=== PATIENT | female | born 1950 | race African-American/Black ===

== ENCOUNTER 2018-04-06 23:23 | Inpatient (IN) | payer OTHER ==
[~2018-04-06] VITALS: Ht 157.5 cm; Wt 71.7 kg
[~2018-04-06 23:23] MED LIST: ACET-2863 PO; AMLO5TAB PO; ASPI-1093 PO; CARV3.12 PO; LEVEMIR SUBQ; METF500T PO; SIMV20TA1 PO; TEMA30CA23 PO
[2018-04-06 23:34] VITALS: BP 154/90
--- NOTE | 2018-04-06 23:36 | NUR ---
TO LOBBY A/W BED, HEATHER ARMENTA, COSTA NOTED
--- NOTE | 2018-04-07 00:18 | NUR ---
PT AMBULATED TO BED 10
[2018-04-07 00:28] LABS: APPEARANCE,URINE TURBID (CLEAR); BILIRUBIN,URINE 1+ (NEGATIVE); BLOOD, URINE 3+ (NEGATIVE); COLOR,URINE BROWN (YELLOW); LEUKOCYTE ESTERASE ,URINE TRACE (NEGATIVE); NITRITE, URINE NEGATIVE (NEGATIVE); UGLUCOSE NEGATIVE (NEGATIVE)
--- NOTE | 2018-04-07 00:51 | NUR ---
Dr. Ontiveros evaluating patient
[2018-04-07] MEDS ORDERED: MORPHINE SULFATE 4 MG/ML SYR IVP ONE ×2 (01:00→02:20)
[2018-04-07] MEDS ORDERED: METOCLOPRAMIDE 10 MG/2 ML INJ VIAL IVP ONE (01:00)
[2018-04-07] MEDS ORDERED: NACL 0.9% 1,000 ML IV ONE ×2 (01:00→03:05)
[2018-04-07 01:03] LABS: CALCIUM OXALATE CRYSTALS,UR 0-10 /HPF (None Seen); RBC,URINE TOO NUMEROUS TO COUN /HPF (0-5)
[2018-04-07 01:22] LABS: BASOPHILS % (AUTO) 0.3 % (0.0-2.0); EOSINOPHILS # (AUTO) 0.2 K/uL (0-0.4); EOSINOPHILS % (AUTO) 2.3 % (0.0-4.0); HEMATOCRIT 46.9 % (36-48); HEMOGLOBIN 15.5 g/dL (12.0-16.0); LYMPHOCYTES # (AUTO) 2.3 K/uL (2.5-16.5); LYMPHOCYTES % (AUTO) 26.5 % (20.5-51.1); MEAN CORPUSCULAR HEMOGLOBIN 29 pg (27-31); MEAN CORPUSCULAR HGB CONC 33 g/dL (33-37); MEAN CORPUSCULAR VOLUME 87.4 fL (80-94); MONOCYTES # (AUTO) 0.7 K/uL (0.8-1.0); MONOCYTES % (AUTO) 7.8 % (1.7-9.3); NEUTROPHILS # (AUTO) 5.5 K/uL (1.8-7.7); NEUTROPHILS % (AUTO) 63.1 % (42.2-75.2); PLATELET COUNT (AUTO) 198 K/uL (140-450); RED BLOOD CELL COUNT(AUTO) 5.37 MIL/uL (4.20-5.40); RED CELL DISTRIBUTION WIDTH 14.4 % (11.6-13.7); WHITE BLOOD COUNT (AUTO) 8.7 K/uL (4.8-10.8)
[2018-04-07 01:32] LABS: ANION GAP 10.2 (8-16); CARBON DIOXIDE 30.5 mmol/L (21-32); CREATININE 0.8 mg/dL (0.6-1.3); POTASSIUM 3.7 mmol/L (3.5-5.1)
[2018-04-07 01:43] LABS: PROTHROMBIN TIME 11.5 secs (10.8-13.4)
--- NOTE | 2018-04-07 02:08 | NUR ---
PT TAKEN FOR CT
--- NOTE | 2018-04-07 02:22 | NUR ---
PT RETURN FROM CT
[2018-04-07] MEDS ORDERED: TAMSULOSIN 0.4 MG CAP PO ONE (02:30)
[2018-04-07] MEDS ORDERED: cefTRIAXone 1,000 MG VIAL ONE (02:40)
--- NOTE | 2018-04-07 02:53 | NUR ---
FLOMAX NOT AVAILABLE IN [facility] ER. [facility] NOTIFIED, PER [facility] TO BE ADMINSITER IN FLOOR D/T UNABLE TO OVERWRITE. CHARGE NURSE, AND ER MD MADE AWARE.
--- NOTE | 2018-04-07 02:58 | NUR ---
PT RSTING IN BED, AWATING FOR ADMITING ORDERS. VSS.
[2018-04-07] MEDS ORDERED: fentaNYL 0.05 MG/ML VIAL IVP ONE (03:05)
[2018-04-07] MEDS ORDERED: AMLO10TA PO (03:28)
[2018-04-07] MEDS ORDERED: CARV12.5 PO (03:29)
[2018-04-07] MEDS ORDERED: TRAZ-286 PO (03:30)
[2018-04-07] MEDS ORDERED: HYDR-3293 PO (03:31)
[2018-04-07] MEDS ORDERED: VITD1000 PO (03:32)
[2018-04-07] MEDS ORDERED: ATOR10TA51 PO (03:33)
[2018-04-07] MEDS ORDERED: ONDA4ODT2 PO (03:34)
[2018-04-07] MEDS ORDERED: APIX5TAB PO (03:35)
[2018-04-07] MEDS: NACL 0.9% 1,000 ML IV SCH ×2 (04:04→17:11)
[2018-04-07] MEDS ORDERED: MORPHINE SULFATE 2 MG/ML SYR IVP PRN ×2 (04:05→15:00)
[2018-04-07] MEDS ORDERED: DEXTROSE 50% 50 ML SYR IVP PRN (04:05)
[2018-04-07] MEDS ORDERED: TEMAZEPAM 15 MG CAP PO PRN (04:05)
[2018-04-07] MEDS ORDERED: INSULIN LISPRO SLIDING SCALE 100 UNITS/ML VIAL SUBQ PRN (04:05)
[2018-04-07] MEDS ORDERED: MORPHINE SULFATE 4 MG/ML SYR IVP PRN (04:05)
[2018-04-07] MEDS ORDERED: HYDROcodone/APAP 5/325 MG 1 TAB TAB PO PRN (04:05)
[2018-04-07] MEDS ORDERED: ONDANSETRON 4 MG/2 ML VIAL IVP PRN (04:05)
--- NOTE | 2018-04-07 04:36 | NUR ---
Patient will be admitted to care of DR ADAME. Admited to MED SURG. Will go to room 104B. Belongings list completed. Report to MODESTO Gross at bedside.
--- NOTE | 2018-04-07 04:45 | NUR ---
ADMITTED PT FROM ER VIA JOSE ANTONIO. AAOX4. NO RESP DISTRESS NOTED. C/O ABD/RIGHT LOWER BACK PAIN 2/10, PER PT, PAIN IS TOLERABLE. SKIN INTACT. IV TO RIGHT WRIST #22G, PATENT AND INTACT. ORIENTED PT TO ROOM. DISCUSSED PLAN OF CARE, PT VERBALIZED UNDERSTANDING. WILL CONTINUE TO MONITOR. CALL LIGHT WITHIN REACH.
[2018-04-07 05:00] VITALS: BP 123/86
--- NOTE | 2018-04-07 05:08 | NUR ---
TAMSULOSIN 0.4MG WAS NOT GIVEN IN THE ER, MEDICINE NOT AVAILABLE. PER ORAL AND MAXILLOFACIAL SURGEON, GIVE THE TAMSULOSIN WHEN THE PT IS ADMITTED TO [facility].
--- NOTE | 2018-04-07 06:57 | NUR ---
PT C/O RIGHT LOWER BACK PAIN 7/10 SCALE. MORPHINE 4 MG IVP GIVEN ORDERED.
[2018-04-07] MEDS: BLOOD GLUCOSE MONITORING 1 DEV DEV FS SCH ×4 (06:59→20:36)
--- NOTE | 2018-04-07 07:05 | NUR ---
ASSUMED CONTINUITY OF CARE. NO SIGNS AND SYMPTOMS OF ACUTE DISTRESS NOTED. INITIAL ASSESSMENT DONE. KEEP COMFORTABLE ON BED. EXPLAINED DIAGNOSIS, PLAN OF CARE, PAIN MANAGEMENT TEACHING, STRAIN URINE FOR CALCULUS, USE OF CALL LIGHT/BED/TV/BATHROOM. VERBALIZED UNDERSTANDING. CALL LIGHT WITHIN REACH.
--- NOTE | 2018-04-07 07:05 | NUR ---
ENDORSED PT TO DAY SHIFT NURSE. PT IN STABLE CONDITION.
[2018-04-07 08:00] VITALS: BP 123/79
--- NOTE | 2018-04-07 08:00 | NUR ---
Patient's Plan of Care was discussed and reviewed with PAPER PLATE MACHINE TENDER: DARÍO VO
[2018-04-07] MEDS ORDERED: TAMSULOSIN 0.4 MG CAP PO SCH (08:30)
[2018-04-07] MEDS: traZODone 50 MG TAB PO SCH (08:51)
[2018-04-07] MEDS: LOSARTAN 50 MG TAB PO SCH (08:52)
[2018-04-07] MEDS: ATORVASTATIN 20 MG TAB PO SCH (08:52)
[2018-04-07] MEDS ORDERED: CARVEDILOL 6.25 MG TAB PO SCH (09:00)
[2018-04-07] MEDS ORDERED: APIXABAN 2.5 MG TAB PO SCH (09:00)
--- NOTE | 2018-04-07 10:30 | NUR ---
DR. ADAME CAME AND SPOKE TO PT. AT BEDSIDE.
--- NOTE | 2018-04-07 11:03 | NUR ---
PATIENT HAS BEEN SCREENED AND CATEGORIZED MODERATE NUTRITION RISK. PATIENT WILL BE SEEN WITHIN 3-5 DAYS OF ADMISSION. 04/09/18 04/11/[address]
[2018-04-07] MEDS ORDERED: LOVENOX 1MG/KG Q12H SUBQ SCH (11:15)
[2018-04-07 12:00] VITALS: BP 118/85
[2018-04-07] MEDS: HYDROcodone/APAP 5/325 MG 1 TAB TAB PO SCH ×2 (13:13→20:44)
--- NOTE | 2018-04-07 14:38 | NUR ---
WENT TO BATHROOM WITHOUT ASSISTANCE. HAD STEADY GAIT AND BALANCE. TOLERATED WELL. NO C/O PAIN.
--- NOTE | 2018-04-07 15:15 | NUR ---
Clinical review faxed to [facility] at [phone]
--- NOTE | 2018-04-07 15:25 | NUR ---
PAGED DR. KRISHNAN AT REGARDING PT. CONSULT. LEFT CALL BACK NUMBER.
--- NOTE | 2018-04-07 19:05 | NUR ---
BEDSIDE REPORT GIVEN TO LONNIE POSEY. IVF INFUSING WELL. IN STABLE CONDITION.
--- NOTE | 2018-04-07 19:30 | NUR ---
ASSUMED CARE OF PATIENT, AWAKE, ALERT AND ORIENTED. NO COMPLAINS. CALL LIGHT WITHIN REACH.
--- NOTE | 2018-04-07 20:00 | NUR ---
PLAN OF CARE DISCUSSED WITH PATIENT, VERBALIZED UNDERSTANDING WELL. CARE BOARD UPDATED. CALL LIGHT WITHIN REACH.
[2018-04-07] MEDS: CARVEDILOL 12.5 MG TAB PO SCH (20:44)
[2018-04-07] MEDS: ENOXAPARIN 80 MG/0.8 ML SYR SUBQ SCH (20:45)
--- NOTE | 2018-04-07 21:00 | NUR ---
DUE MEDS GIVEN, TOLERATED WELL. CALL LIGHT WITHIN REACH. NO COMPLAINS AT THIS TIME.
[2018-04-07 23:38] VITALS: BP 125/81
--- NOTE | 2018-04-07 23:43 | NUR ---
SLEEPING WELL. EASILY AROUSABLE. NO COMPLAINS. CALL LIGHT WITHIN REACH. VITAL SIGNS STABLE.
--- NOTE | 2018-04-08 03:00 | NUR ---
RECEIVED REPORT FROM LONNIE SALVADOR AT BEDSIDE FOR TRANSFER OF CARE. PT IS 67 F AO X4 ,SKIN INTACT WITH IV SITE ON L WRIST 22G RUNNING N/S AT 75MLS/HR. PT ADMITTED HERE FOR KIDNEY STONES. PT URINE IS BEING STRAINED. BED IN LOW POSITION AND CALL SEVERINO IN REACH.
--- NOTE | 2018-04-08 03:00 | NUR ---
ENDORSED CARE AT BEDSIDE WITH TERESA PAZ RN, PATIENT IN STABLE CONDITION.
[2018-04-08] MEDS: HYDROcodone/APAP 5/325 MG 1 TAB TAB PO SCH ×2 (04:05→13:17)
--- NOTE | 2018-04-08 04:25 | NUR ---
PT C/O 8/10 PAIN IN R FLANK AREA AND NAUSEA WELL. PT RECEIVED SCHEDULED NORCO 5/325MG 2 TABS AT THIS TIME WELL PRN 4MG/2MLS OF ZOFRAN FOR NUASEA. PT VOIDED 1000MLD OF RED TINGED URINE AND URINE WAS STRAINED, NO STONES OBTAINED. PT V/S FOLLOWS T 98.7 P 64 R 20 B/P 139/98 O2 99% W R/A.
[2018-04-08] MEDS: BLOOD GLUCOSE MONITORING 1 DEV DEV FS SCH ×2 (05:39→11:30)
[2018-04-08] MEDS: NACL 0.9% 1,000 ML IV SCH (06:05)
--- NOTE | 2018-04-08 07:15 | NUR ---
GAVE REPORT TO DEEPA SALVADOR DAYSHIFT NURSE AT BEDSIDE FOR TRANSFER OF CARE, PT IN STABLE CONDITION.
--- NOTE | 2018-04-08 07:20 | NUR ---
RECEIVED PT FROM AUTO BODY REPAIRER FIBERGLASS NURSE, TERESA, PT IS AWAKE AND LYING ON THE BED, SIDE RAILS ARE UP AND CALL LIGHT WITHIN REACH. PT HAS AN IV LINE ON THE LEFT FOREARM G. 22, INTACT WITH NS RUNNING AT 75ML/HR AND INFUSING WELL. PLAN OF CARE WAS DISCUSSED AND PT VERBALIZED UNDERSTANDING. PT IS ALER, ORIENTEDX4. NO SIGN OF DISTRESS NOTED AND WILL MONITOR.
[2018-04-08 07:33] LABS: BASOPHILS % (AUTO) 0.5 % (0.0-2.0); EOSINOPHILS # (AUTO) 0.2 K/uL (0-0.4); EOSINOPHILS % (AUTO) 2.8 % (0.0-4.0); HEMATOCRIT 42.1 % (36-48); HEMOGLOBIN 13.9 g/dL (12.0-16.0); LYMPHOCYTES # (AUTO) 2.1 K/uL (2.5-16.5); LYMPHOCYTES % (AUTO) 34.1 % (20.5-51.1); MEAN CORPUSCULAR HEMOGLOBIN 29 pg (27-31); MEAN CORPUSCULAR HGB CONC 33 g/dL (33-37); MEAN CORPUSCULAR VOLUME 88.1 fL (80-94); MONOCYTES # (AUTO) 0.6 K/uL (0.8-1.0); MONOCYTES % (AUTO) 9.3 % (1.7-9.3); NEUTROPHILS # (AUTO) 3.3 K/uL (1.8-7.7); NEUTROPHILS % (AUTO) 53.3 % (42.2-75.2); PLATELET COUNT (AUTO) 167 K/uL (140-450); RED BLOOD CELL COUNT(AUTO) 4.78 MIL/uL (4.20-5.40); RED CELL DISTRIBUTION WIDTH 14.1 % (11.6-13.7); WHITE BLOOD COUNT (AUTO) 6.2 K/uL (4.8-10.8)
[2018-04-08 07:42] LABS: ANION GAP 12.6 (8-16); CARBON DIOXIDE 27.3 mmol/L (21-32); CREATININE 0.7 mg/dL (0.6-1.3); POTASSIUM 3.9 mmol/L (3.5-5.1)
--- NOTE | 2018-04-08 07:45 | NUR ---
PT IS AWAKE AND VITAL SIGNS TAKEN, NO SIGN OF DISTRESS NOTED AND WILL MONITOR.
[2018-04-08 08:00] VITALS: BP 134/80
[2018-04-08] MEDS ORDERED: TAMSULOSIN 0.4 MG CAP PO SCH (08:30)
[2018-04-08] MEDS: ATORVASTATIN 20 MG TAB PO SCH (08:31)
[2018-04-08] MEDS: CARVEDILOL 12.5 MG TAB PO SCH (08:32)
[2018-04-08] MEDS: traZODone 50 MG TAB PO SCH (08:32)
[2018-04-08] MEDS: LOSARTAN 50 MG TAB PO SCH (08:33)
[2018-04-08] MEDS: ENOXAPARIN 80 MG/0.8 ML SYR SUBQ SCH (08:35)
[2018-04-08] MEDS ORDERED: ACET-2869 PO (08:58)
[2018-04-08] MEDS ORDERED: LEVO500T2 PO (08:58)
[2018-04-08] MEDS ORDERED: TAMS0.4C96 PO (08:58)
--- NOTE | 2018-04-08 09:00 | NUR ---
DR. ADAME SAW THE AND TALKED TO THE PT.
--- NOTE | 2018-04-08 15:00 | NUR ---
DISCHARGED PT VIA WHEELCHAIR, WITH THE SISTER. IV LINE AND ARM BAND REMOVED, DISCHARGE INSTRUCTIONS GIVEN WELL PRESCRIPTION INSTRUCTIONS GIVEN ALSO. PT VERBALIZED UNDERSTANDING OF INSTRUCTIONS. PT IS STABLE AT THIS TIME.
== END 2018-04-08 15:00 | disposition home or self-care (01) | DRG 694 ==
LOC: MED 23:23 → MTU 04-07 04:18
PROVIDERS: ADMIT Hospitalist; ATTEND Hospitalist
DX: N20.0 Calculus of kidney (principal); N39.0 Urinary tract infection, site not specified; I48.91 Unspecified atrial fibrillation; E11.9 Type 2 diabetes mellitus without complications; I10 Essential (primary) hypertension; E78.5 Hyperlipidemia, unspecified; F32.9 Major depressive disorder, single episode, unspecified; K57.30 Diverticulosis of large intestine without perforation or abscess without bleeding; Z90.710 Acquired absence of both cervix and uterus; Z96.659 Presence of unspecified artificial knee joint; E21.3 Hyperparathyroidism, unspecified
CPT/HCPCS: 36415; 80048; 80053; 81001; 82948; 83605; 85025; 85610; 85730; 87040; 87081; 87086; 96361; 96365; 96375; 96376; 99285; J0696; J1650; J1815; J2270; J2405; J2765; J3010; J7030; J7060

== ENCOUNTER 2019-01-30 11:22 | Inpatient (IN) | payer OTHER ==
[~2019-01-30] VITALS: Ht 160 cm; Wt 75.7 kg
[~2019-01-30 11:22] MED LIST changes: -ACET-2863 PO; -AMLO5TAB PO; +APIX5TAB PO; -ASPI-1093 PO; +ATOR10TA51 PO; +CARV12.5 PO; -CARV3.12 PO; +HYDR-3293 PO; +HYDR-5122 PO; -LEVEMIR SUBQ; +LEVO500T2 PO; -METF500T PO; +ONDA4ODT2 PO; +TAMS0.4C96 PO; -TEMA30CA23 PO; +TRAZ-343 PO; +VITD1000 PO
--- NOTE | 2019-01-30 11:23 | NUR ---
Patient ambulated to bed 7 with family. RN evaluating patient at bedside.
[2019-01-30 11:28] VITALS: BP 128/98
--- NOTE | 2019-01-30 11:30 | NUR ---
68 Y FEMALE BIB WITH C/O ABDOMINAL PAIN RADIATING TO LOWER BACK, +N/V, BURNING URINATION, SOBOE, DENIES CHEST PAIN. LUNGS CLEAR BILATERALLY. ABDOMEN SOFT AND ROUND, TENDER TO TOUCH, PAIN 10/10 ACHING. PT REPORTS HAVING ABOWEL MOVEMENT TODAY WITH STRAIN. HR 108. AA0X4. BED IS DOWN, LOCKED, BED RAIL X 1, ERMD NOTIFIED. HX OF HTN, KIDNEY STONE
--- NOTE | 2019-01-30 11:41 | NUR ---
Dr. Bateman evaluating patient at bedside.
[2019-01-30] MEDS ORDERED: NACL 0.9% 1,000 ML IV ONE (11:54)
[2019-01-30] MEDS ORDERED: MORPHINE SULFATE 4 MG/ML SYR IVP ONE ×2 (11:55→13:55)
[2019-01-30] MEDS ORDERED: ONDANSETRON 4 MG/2 ML VIAL IVP ONE ×2 (11:55→13:55)
--- NOTE | 2019-01-30 12:28 | NUR ---
LAB AT BEDSIDE
--- NOTE | 2019-01-30 12:31 | NUR ---
PT REFUSING MORPHINE, STATES SHE IS ALLERGIC TO IT
--- NOTE | 2019-01-30 12:35 | NUR ---
PT WANTS MORPHINE, STATES SHE GETS A HEADACHE WHEN SHE TAKES IT
--- NOTE | 2019-01-30 12:37 | NUR ---
PT BEING TAKEN TO CT
[2019-01-30 12:52] LABS: BASOPHILS # (AUTO) 0.1 K/uL (0.00-0.22); BASOPHILS % (AUTO) 0.6 % (0.0-2.0); HEMATOCRIT 46.1 % (36-48); HEMOGLOBIN 15.8 g/dL (12.0-16.0); LYMPHOCYTES # (AUTO) 1.5 K/uL (2.5-16.5); LYMPHOCYTES % (AUTO) 9.4 % (20.5-51.1); MEAN CORPUSCULAR HEMOGLOBIN 30 pg (27-31); MEAN CORPUSCULAR HGB CONC 34 g/dL (33-37); MEAN CORPUSCULAR VOLUME 87.4 fL (80-94); MONOCYTES # (AUTO) 1.6 K/uL (0.8-1.0); MONOCYTES % (AUTO) 9.6 % (1.7-9.3); NEUTROPHILS # (AUTO) 13.2 K/uL (1.8-7.7); NEUTROPHILS % (AUTO) 80.4 % (42.2-75.2); PLATELET COUNT (AUTO) 179 K/uL (140-450); RED BLOOD CELL COUNT(AUTO) 5.27 MIL/uL (4.20-5.40); RED CELL DISTRIBUTION WIDTH 14.3 % (11.6-13.7); WHITE BLOOD COUNT (AUTO) 16.4 K/uL (4.8-10.8)
--- NOTE | 2019-01-30 12:56 | NUR ---
PT RETURNED FROM CT
[2019-01-30 13:01] LABS: APPEARANCE,URINE SL CLOUDY (CLEAR); BILIRUBIN,URINE 1+ (NEGATIVE); BLOOD, URINE 3+ (NEGATIVE); COLOR,URINE DARK YELLOW (YELLOW); LEUKOCYTE ESTERASE ,URINE 2+ (NEGATIVE); NITRITE, URINE POSITIVE (NEGATIVE); PH,URINE 5.5 (5.0-9.0); UGLUCOSE NEGATIVE (NEGATIVE)
[2019-01-30 13:02] LABS: ANION GAP 16.1 (8-16); CARBON DIOXIDE 21.1 mmol/L (21-32); CREATININE 0.9 mg/dL (0.6-1.3); POTASSIUM 3.2 mmol/L (3.5-5.1)
[2019-01-30 13:13] LABS: RBC,URINE 80-100 /HPF (0-5); WBC,URINE TOO MANY TO COUNT /HPF (0-5)
[2019-01-30 13:15] LABS: ALBUMIN 3.5 g/dL (3.4-5.0); TOTAL BILIRUBIN 2.1 mg/dL (0.0-1.0)
[2019-01-30 13:19] LABS: MAGNESIUM 1.4 mg/dL (1.8-2.4); URIC ACID 6.8 mg/dL (2.6-7.2)
[2019-01-30] MEDS ORDERED: MAG SULF 2000 MG/WATER PREMIX 50 ML IV ONE (13:55)
[2019-01-30] MEDS ORDERED: cefTRIAXone 1,000 MG VIAL ONE (14:03)
--- NOTE | 2019-01-30 14:31 | NUR ---
PT CONTINUES TO SAT AT 90, STARTED ON 2 L NC, NOW AT 99%
--- NOTE | 2019-01-30 15:25 | NUR ---
PT SLEEPING IN BED
--- NOTE | 2019-01-30 16:00 | NUR ---
PT AMB TO BATHROOM WITH ASSISTANCE
--- NOTE | 2019-01-30 16:38 | NUR ---
VSS AT THIS TIME. AAX04. PT LAYING IN BED.
[2019-01-30] MEDS ORDERED: FAMOTIDINE 20 MG TAB PO ONE (16:40)
[2019-01-30] MEDS ORDERED: METOCLOPRAMIDE 10 MG TAB PO ONE (16:40)
[2019-01-30] MEDS ORDERED: MECLIZINE 25 MG TAB PO ONE (16:40)
[2019-01-30] MEDS ORDERED: hydrOXYzine HCL 25 MG TAB PO ONE (16:40)
[2019-01-30] MEDS ORDERED: PROMETHAZINE 25 MG/ML VIAL IM ONE (17:35)
--- NOTE | 2019-01-30 18:15 | NUR ---
RECEIVED REPORT FROM EMERGENCY ROOM NURSE DENISE. PT IN STABLE CONDITION.
--- NOTE | 2019-01-30 18:15 | NUR ---
Patient will be admitted to [facility]. Admited to TELE. Will go to room 107B. Belongings list completed. Report to NIMESH SALVADOR.
[2019-01-30] MEDS ORDERED: HYDROcodone/APAP 5/325 MG 1 TAB TAB PO PRN (18:30)
[2019-01-30] MEDS ORDERED: LORazepam 2 MG/ML VIAL IVP PRN (18:30)
[2019-01-30] MEDS ORDERED: ALBUTEROL 0.083% 2.5 MG/3 ML NEBU INH PRN (18:30)
[2019-01-30] MEDS ORDERED: ACETAMINOPHEN 325 MG TAB PO PRN (18:30)
[2019-01-30] MEDS ORDERED: DEXT 5% / NACL 0.45% 1,000 ML IV SCH (19:00)
--- NOTE | 2019-01-30 19:25 | NUR ---
GAVE REPORT TO AUTOMATIC DEVELOPER NURSE FOR CONTINUITY OF CARE. PT IN STABLE CONDITION.
--- NOTE | 2019-01-30 19:26 | NUR ---
RECEIVED REPORT FROM AM NURSE. PATIENT LYING DOWN IN BED, PAIN WITHIN TOLERABLE AT THIS TIME. AAOX4, CALM, COOPERATIVE, SKIN COLOR APPROPRIATE TO ETHNICITY, WARM TO TOUCH. SKIN INTACT. RESPIRATIONS EVEN, UNLABORED, ON ROOM AIR. IV SITE INTACT, PATENT, AND ON SALINE LOCK. ABDOMEN SOFT, NON-DISTENDED. SAFETY MEASURES IN PLACE, CALL LIGHT WITHIN REACH. WILL CONTINUE TO MONITOR.
[2019-01-30 20:00] VITALS: BP 120/80
[2019-01-30] MEDS ORDERED: MAG SULF 2000 MG/WATER PREMIX 50 ML IV SCH (20:00)
[2019-01-30] MEDS: ONDANSETRON 4 MG/2 ML VIAL IVP PRN (20:12)
[2019-01-30] MEDS: MORPHINE SULFATE 4 MG/ML SYR IVP PRN (20:13)
--- NOTE | 2019-01-30 20:29 | NUR ---
PATIENT HAD VOMIT X 1 EPISODE, ABOUT 10 ML. COMPLAINS OF ABD PAIN. ZOFRAN AND MORPHINE GIVEN AT THIS TIME. WILL CONTINUE TO MONITOR.
[2019-01-30] MEDS: ALBUTEROL 0.083% 2.5 MG/3 ML NEBU INH SCH (20:59)
[2019-01-30] MEDS: IPRATROPIUM 0.02% 0.5 MG/2.5 ML NEBU INH SCH (20:59)
[2019-01-30] MEDS: APIXABAN 2.5 MG TAB PO SCH (21:33)
[2019-01-30] MEDS: CARVEDILOL 3.125 MG TAB PO SCH (21:33)
--- NOTE | 2019-01-30 23:14 | NUR ---
PATIENT LYING DOWN IN BED SLEEPING, AROUSABLE BY VOICE. NO DISTRESS NOTED. WILL CONTINUE TO MONITOR.
[2019-01-31] VITALS: BP 145/92
[2019-01-31] MEDS ORDERED: KCL 20 MEQ/WATER INJ PREMIX 200 ML IV SCH
[2019-01-31] MEDS: ONDANSETRON 4 MG/2 ML VIAL IVP PRN ×3 (00:12→09:28)
[2019-01-31] MEDS: MORPHINE SULFATE 4 MG/ML SYR IVP PRN ×5 (00:19→20:40)
--- NOTE | 2019-01-31 00:26 | NUR ---
PATIENT AMBULATED TO BATHROOM AND BACK TO BED. VOMIT X 1 AT THIS TIME AND COMPLAINS OF ABD PAIN. ZOFRAN AND MORPHINE GIVEN AT THIS TIME. WILL CONTINUE TO MONITOR.
--- NOTE | 2019-01-31 01:00 | NUR ---
PT REFUSED TX
--- NOTE | 2019-01-31 01:34 | NUR ---
PATIENT LYING DOWN IN BED SLEEPING, AROUSABLE BY VOICE. CONDITION UNCHANGED. WILL CONTINUE TO MONITOR.
--- NOTE | 2019-01-31 02:51 | NUR ---
PATIENT LYING DOWN IN BED SLEEPING, AROUSABLE BY VOICE. CONDITION UNCHANGED. WILL CONTINUE TO MONITOR.
[2019-01-31 04:00] VITALS: BP 135/82
--- NOTE | 2019-01-31 04:46 | NUR ---
PATIENT FEELING NAUSEATED, VOMIT X 1 <5 ML. ZOFRAN GIVEN. PATIENT ALSO COMPLAINS OF ABD PAIN. MORPHINE GIVEN AT THIS TIME. WILL CONTINUE TO MONITOR.
--- NOTE | 2019-01-31 06:15 | NUR ---
PATIENT LYING DOWN IN BED SLEEPING, AROUSABLE BY VOICE. DENIES ANY PAIN. SCHEDULED MEDICATIONS DUE GIVEN. WILL CONTINUE TO MONITOR.
--- NOTE | 2019-01-31 07:24 | NUR ---
GAVE REPORT TO AM NURSE FOR CONTINUITY FOR CARE. PATIENT IN STABLE CONDITION.
--- NOTE | 2019-01-31 07:25 | NUR ---
GOT BEDSIDE REPORT FROM MODESTO MAS. PATIENT ON TELE MONITOR AND STANDARD PRECAUTIONS IN PLACE. PATIENT AAOX4 AND ON ROOM AIR, NO DISTRESS NOTED. SKIN INTACT. IV ON L FA 22 G, IV ASYMPTOMATIC PATENT AND INTACT. PATIENT AMBULATORY AND CONTINENT. BED IN LOW POSITION, CALL LIGHT WITHIN REACH, SIDE RAILS X2 UP
[2019-01-31 08:00] VITALS: BP 146/98
[2019-01-31 08:54] LABS: BASOPHILS % (AUTO) 0.1 % (0.0-2.0); HEMATOCRIT 43.5 % (36-48); HEMOGLOBIN 14.7 g/dL (12.0-16.0); LYMPHOCYTES # (AUTO) 1.4 K/uL (2.5-16.5); LYMPHOCYTES % (AUTO) 9.1 % (20.5-51.1); MEAN CORPUSCULAR HEMOGLOBIN 30 pg (27-31); MEAN CORPUSCULAR HGB CONC 34 g/dL (33-37); MEAN CORPUSCULAR VOLUME 88.3 fL (80-94); MONOCYTES # (AUTO) 1.6 K/uL (0.8-1.0); MONOCYTES % (AUTO) 10.5 % (1.7-9.3); NEUTROPHILS # (AUTO) 12.2 K/uL (1.8-7.7); NEUTROPHILS % (AUTO) 80.3 % (42.2-75.2); PLATELET COUNT (AUTO) 165 K/uL (140-450); RED BLOOD CELL COUNT(AUTO) 4.93 MIL/uL (4.20-5.40); RED CELL DISTRIBUTION WIDTH 14.4 % (11.6-13.7); WHITE BLOOD COUNT (AUTO) 15.2 K/uL (4.8-10.8)
[2019-01-31] MEDS: CARVEDILOL 3.125 MG TAB PO SCH ×2 (09:00→20:41)
[2019-01-31] MEDS ORDERED: NON-FORMULARY ITEM (Losartan/Hydrochlorothiazide (Losartan-Hctz 50-12.5 mg Tab) 1 TAB) PO SCH (09:00)
[2019-01-31] MEDS: traZODone 50 MG TAB PO SCH (09:00)
[2019-01-31] MEDS: LOSARTAN 50 MG TAB PO SCH (09:00)
[2019-01-31] MEDS ORDERED: NON-FORMULARY ITEM (Atorvastatin Calcium 1 TAB) PO SCH (09:00)
[2019-01-31] MEDS: APIXABAN 2.5 MG TAB PO SCH ×2 (09:00→20:42)
[2019-01-31] MEDS: TAMSULOSIN 0.4 MG CAP PO SCH (09:00)
[2019-01-31] MEDS: CHOLECALCIFEROL 1,000 IU TAB PO SCH (09:00)
[2019-01-31] MEDS: HYDROCHLOROTHIAZIDE 25 MG TAB PO SCH (09:00)
--- NOTE | 2019-01-31 09:39 | NUR ---
ADMINISTERED MORPHINE AND ZOFRAN PRN. HELD PO MEDS BECAUSE PATIENT STATED SHE FEELS NAUSEOUS AND CANT EAT HER BREAKFAST BECAUSE SHE CAN'T KEEP ANYTHING DOWN AND SHE MIGHT JUST THROW UP ALL HER PO MEDS.
--- NOTE | 2019-01-31 11:30 | NUR ---
PATIENT SLEEPING, ON ROOM AIR, NO DISTRESS NOTED
[2019-01-31 12:00] VITALS: BP 138/98
--- NOTE | 2019-01-31 14:22 | NUR ---
PATIENT WATCHING TV, ON ROOM AIR, NO DISTRESS NOTED
[2019-01-31] MEDS: PROMETHAZINE 25 MG/ML VIAL IVP PRN ×2 (15:41→20:40)
--- NOTE | 2019-01-31 15:47 | NUR ---
ADMINISTERED PHENERGAN PRN FOR NAUSEA. PATIENT TOLERATED WELL
[2019-01-31 16:00] VITALS: BP 138/96
--- NOTE | 2019-01-31 18:32 | NUR ---
DAUGHTER AT BEDSIDE. CHANGED SOILED LINENS AND PLACED PILLOWS ON BOTH SIDES Addendum: 01/31/19 at 1833 by Edel Sargent RN WRONG PATIENT. PLEASE DISREGARD ABOVE
--- NOTE | 2019-01-31 18:41 | NUR ---
PATIENT SITTING UP IN BED FEELING NAUSEOUS, NO PRN MED DUE AT THIS TIME. BLUE BAG WITH PATIENT
--- NOTE | 2019-01-31 19:20 | NUR ---
GAVE BEDSIDE REPORT TO MODESTO SANDERS. PATIENT ENDORSED IN STABLE CONDITION
--- NOTE | 2019-01-31 19:21 | NUR ---
RECEIVED BEDSIDE REPORT FROM DAY SHIFT RNERIC. PATIENT IN STABLE CONDITION. BED LOW, CALL LIGHT IN REACH.
[2019-01-31 20:00] VITALS: BP 142/108
[2019-01-31] MEDS: SIMVASTATIN 20 MG TAB PO SCH (20:41)
--- NOTE | 2019-01-31 20:41 | NUR ---
ADMINISTERED SCHEDULED MEDICATIONS, EXCEPT ZOCOR WHICH PATIENT REFUSED. ALSO ADMINISTERED PRN MORPHINE AND PHENERGAN DUE TO PAIN AND NAUSEA. PATIENT TOLERATED MEDICATIONS WELL. WILL CONTINUE TO MONITOR.
--- NOTE | 2019-01-31 22:00 | NUR ---
PATIENT NOW RESTING COMFORTABLY IN BED. PAIN HAS SUBSIDED. WILL CONTINUE TO MONITOR.
[2019-02-01] VITALS: BP 142/68
--- NOTE | 2019-02-01 00:15 | NUR ---
PATIENT SLEEPING IN BED. NO SIGNS OF DISTRESS ON RA. WILL CONTINUE TO MONITOR.
[2019-02-01] MEDS: MORPHINE SULFATE 4 MG/ML SYR IVP PRN ×5 (02:07→23:21)
[2019-02-01] MEDS: PROMETHAZINE 25 MG/ML VIAL IVP PRN ×2 (02:07→21:53)
--- NOTE | 2019-02-01 02:10 | NUR ---
ADMINISTERED PRN PAIN AND NAUSEA MEDICATION. WILL CONTINUE TO MONITOR.
[2019-02-01 04:00] VITALS: BP 139/100
--- NOTE | 2019-02-01 05:30 | NUR ---
PATIENT SLEEPING IN BED. NO SIGNS OF DISTRESS. SAFETY MEASURES IN PLACE.
[2019-02-01] MEDS: IPRATROPIUM 0.02% 0.5 MG/2.5 ML NEBU INH SCH ×3 (07:00→20:14)
[2019-02-01] MEDS: ALBUTEROL 0.083% 2.5 MG/3 ML NEBU INH SCH ×3 (07:00→20:14)
--- NOTE | 2019-02-01 07:15 | NUR ---
GAVE BEDSIDE REPORT TO DAY SHIFT RN. PATIENT IN STABLE CONDITION. SLEEPING COMFORTABLY. Addendum: 02/01/19 at 0817 by Kenyatta Barone RN WRONG PATIENT.
--- NOTE | 2019-02-01 07:30 | NUR ---
REPORT RECEIVED FROM NIGHT NURSE MARILYN . PT ASLEEP EASILY AROUSABLE TO A/O ABLE TO COMMUNICATE NEEDS. NO S/S ACUTE DISTRESS NOTED, PERSONAL ITEMS WITHIN REACH, CALL LIGHT AND SAFETY MEASURES IN PLACE, WILL CONTINUE TO MONITOR.
--- NOTE | 2019-02-01 07:35 | NUR ---
GAVE BEDSIDE REPORT TO DAY SHIFT RN. PATIENT AWAKE AND ALERT, ENDORSED TO DAY SHIFT NURSE FOR CONTINUITY OF CARE.
[2019-02-01 08:35] VITALS: BP 137/93
--- NOTE | 2019-02-01 08:38 | NUR ---
PATIENT HAS BEEN SCREENED AND CATEGORIZED HIGH NUTRITION RISK. PATIENT WILL BE SEEN WITHIN 1-2 DAYS OF ADMISSION. 02/01/[address]
[2019-02-01] MEDS: ONDANSETRON 4 MG/2 ML VIAL IVP PRN ×3 (08:41→18:27)
--- NOTE | 2019-02-01 08:41 | NUR ---
PT COMPLAINED OF PAIN TO IV SITE TO LFA W RESISTANCE TO FLUSH, PERIPHERAL IV REMOVED, CATH INTACT, PT TOLERATED WELL, NEW IV STARTED 24g TO RFA, LUIZA WELL, POSITIVE FOR FLUSH AND FLASH. NO S/S ACUTE DISTRESS NOTED, PERSONAL ITEMS WITHIN REACH, CALL LIGHT AND SAFETY MEASURES IN PLACE, WILL CONTINUE TO MONITOR.
[2019-02-01 08:48] LABS: ANION GAP 12.9 (8-16); CARBON DIOXIDE 27.6 mmol/L (21-32); CREATININE 0.8 mg/dL (0.6-1.3); POTASSIUM 3.5 mmol/L (3.5-5.1)
[2019-02-01 08:52] LABS: ALBUMIN 2.8 g/dL (3.4-5.0)
[2019-02-01] MEDS: FUROSEMIDE 40 MG TAB PO SCH (09:17)
[2019-02-01] MEDS: traZODone 50 MG TAB PO SCH (09:17)
[2019-02-01] MEDS: LOSARTAN 50 MG TAB PO SCH (09:17)
[2019-02-01] MEDS: CARVEDILOL 3.125 MG TAB PO SCH ×2 (09:18→20:20)
[2019-02-01] MEDS: HYDROCHLOROTHIAZIDE 25 MG TAB PO SCH (09:18)
[2019-02-01] MEDS: CHOLECALCIFEROL 1,000 IU TAB PO SCH (09:18)
[2019-02-01] MEDS: APIXABAN 2.5 MG TAB PO SCH ×2 (09:19→20:21)
[2019-02-01] MEDS: TAMSULOSIN 0.4 MG CAP PO SCH (09:20)
[2019-02-01] MEDS: NACL 0.9% 1,000 ML IV SCH ×2 (11:40→21:35)
[2019-02-01 12:00] VITALS: BP 133/92
--- NOTE | 2019-02-01 12:00 | NUR ---
PT SLEEPING AT THIS TIME, NO S/S ACUTE DISTRESS NOTED, PERSONAL ITEMS WITHIN REACH, CALL LIGHT AND SAFETY MEASURES IN PLACE, WILL CONTINUE TO MONITOR.
--- NOTE | 2019-02-01 14:00 | NUR ---
PT REMAINS A/O ABLE TO COMMUNICATE NEEDS. PER RECENTLY MEDICATED FOR PAIN, REPOSITIONED AND OFFERED DIVERSIONAL ACTIVITY. PERSONAL ITEMS WITHIN REACH, CALL LIGHT AND SAFETY MEASURES IN PLACE, WILL CONTINUE TO MONITOR.
--- NOTE | 2019-02-01 14:30 | NUR ---
SPOKE W PT BERNIE TO TO VERIFY IF PT IS RECEIVING SCHEDULED TREATMENTS, PER RT UNAWARE OF ORDER, WILL FOLLOW UP WITH TREATMENTS ORDERED.
--- NOTE | 2019-02-01 15:24 | NUR ---
02/01/19 RD INITIAL ASSESSMENT COMPLETED PLEASE REFER TO NUTRITION ASSESSMENT UNDER CARE ACTIVITY FOR ESTIMATED NUTRITIONAL NEEDS. 1. CONTINUE NA 2 GM DIET TOLERATED 2. RECOMMEND ENSURE BID 3. COPD NUTRITION EDUCATION WAS PROVIDED 4. RD TO FOLLOW-UP 3-5 DAYS, MODERATE RISK REBEL VILLARREAL, ARLYN
[2019-02-01 16:00] VITALS: BP 135/84
--- NOTE | 2019-02-01 16:00 | NUR ---
PT RESTING AT THIS TIME, NO S/S OF ACUTE DISTRESS NOTED. PERSONAL ITEMS WITHIN REACH, CALL LIGHT AND SAFETY MEASURES IN PLACE, WILL CONTINUE TO MONITOR.
--- NOTE | 2019-02-01 18:00 | NUR ---
PT REMAINS A/O ABLE TO COMMUNICATE NEEDS. PT RECENTLY MEDICATED FOR PAIN AND NAUSEA, REPOSITIONED AND OFFERED DIVERSIONAL ACTIVITY, ENCOURAGED TO EAT DINNER, NO S/S OF ACUTE DISTRESS NOTED. PERSONAL ITEMS WITHIN REACH, CALL LIGHT AND SAFETY MEASURES IN PLACE, WILL CONTINUE TO MONITOR.
--- NOTE | 2019-02-01 18:38 | NUR ---
0700 AND 130 RT UNAWARE OF SCHEDULED TX'S Addendum: 02/01/19 at 1839 by Sotero Lizarraga RT 130 = 1300
--- NOTE | 2019-02-01 19:37 | NUR ---
RECEIVED BEDSIDE REPORT FROM DAY SHIFT RN. PATIENT RESTING IN BED WITH FAMILY AT BEDSIDE. NO SIGNS OF DISTRESS ON RA. BED LOW, CALL LIGHT IN REACH.
--- NOTE | 2019-02-01 19:38 | NUR ---
REPORT ENDORSED TO ONCOMING SHIFT NURSE MARILYN. PT RESTING IN BED, FAMILY AT BEDSIDE, NO S/S OF ACUTE DISTRESS NOTED, PERSONAL ITEMS WITHIN REACH,CALL LIGHT AND SAFETY MEASURES IN PLACE.
[2019-02-01 20:00] VITALS: BP 130/106
[2019-02-01] MEDS: SIMVASTATIN 20 MG TAB PO SCH (20:21)
--- NOTE | 2019-02-01 20:23 | NUR ---
ADMINISTERED SCHEDULED MEDICATION. PATIENT REFUSED ZOCOR. PATIENT STATES THAT HER "DOCTOR TOOK HER OFF OF THAT ONE." PATIENT TOLERATED PO MEDIATIONS WELL. NO SIGNS OF DISTRESS ON RA. BED LOW. CALL LIGHT IN REACH. WILL CONTINUE TO MONITOR.
[2019-02-01] MEDS ORDERED: DILTIAZEM 25 MG/5 ML VIAL IVP PRN (21:20)
--- NOTE | 2019-02-01 21:20 | NUR ---
PATIENT HEART RATE IS ELEVATED. RECEIVED CALL FROM DR. SHANNON DOWNEY. ORDERS TO FOLLOW.
--- NOTE | 2019-02-01 21:39 | NUR ---
PHARMACY CALLED TO INFORM OF NEW ORDER OF CARDIZEM. PER MAYURI AT PHARMACY CARDIZEM INTERACTS WITH SIMVASTATIN WHICH IS CURRENTLY ON ORDER FOR THE PATIENT. PATIENT HAS BEEN REFUSING THE SIMVASTATIN. PER PHARMACISTS, IF DOCTOR WANTS TO CONTINUE WITH A STATIN THE ORDER CAN BE SWITCHED TO LIPITOR WITHOUT INTERACTION. WILL INFORM DOCTOR OF THIS AND AWAIT FURTHER ORDERS.
--- NOTE | 2019-02-01 22:00 | NUR ---
ADMINISTERED CARDIZEM 10 MG IV PER PRN ORDERS FOR HEART RATE OF 164. PATIENT UNABLE TO TAKE ORAL MEDICATIONS AT THIS TIME DUE TO NAUSEA. WILL CONTINUE TO MONITOR PATIENT. Addendum: 02/02/19 at 0337 by Kenyatta Barone RN ALSO ADMINISTERED PRN MEDICATION FOR NAUSEA. WILL CONTINUE TO MONITOR PATIENT.
--- NOTE | 2019-02-01 22:24 | NUR ---
SPOKE TO DR. TOVAR MADE HIM AWARE OF THE INTERACTION OF SIMVASTATIN AND CARDIZEM. PER DOCTOR LA, DISCONTINUE SIMVASTATIN.
--- NOTE | 2019-02-01 23:21 | NUR ---
PATIENT COMPLAINING OF 8/10 PAIN, VITAL SIGNS STABLE WITH THE EXCEPTION OF ONGOING TACHYCARDIA. ADMINISTERED PRN PAIN MEDICATION. WILL CONTINUE TO MONITOR.
[2019-02-02] VITALS (7 sets, daily range): BP systolic 94–138; BP diastolic 63–95
--- NOTE | 2019-02-02 00:07 | NUR ---
HEART RATE REMAINS ELEVATED AT 130, UNABLE TO ADMINISTER PO CARDIZEM DUE TO LOW BP. WILL MONITOR PATIENT CLOSELY.
[2019-02-02] MEDS: ALBUTEROL 0.083% 2.5 MG/3 ML NEBU INH SCH ×4 (01:00→19:00)
[2019-02-02] MEDS: IPRATROPIUM 0.02% 0.5 MG/2.5 ML NEBU INH SCH ×4 (01:00→19:00)
--- NOTE | 2019-02-02 01:00 | NUR ---
PATIENT IS RESTING, BP IS 94/70, HR IS 134 UNABLE TO ADMINISTER PRN CARDIZEM DUE TO LOW BP. WILL CONTINUE TO MONITOR.
[2019-02-02] MEDS: DILTIAZEM 30 MG TAB PO SCH ×5 (01:25→17:41)
--- NOTE | 2019-02-02 01:45 | NUR ---
PATIENT IS SLEEPING. RECHECKED VITALS AND SPO2 WAS 86%. APPLIED O2 AT 2L VIA NC AND SPO2 IMPROVED TO 95%. WILL CONTINUE TO MONITOR.
--- NOTE | 2019-02-02 02:30 | NUR ---
PATIENT SLEEPING AND BP REMAINS AT 90'S/60'S, SPO2 IN MID 90'S. WILL CONTINUE TO MONITOR.
--- NOTE | 2019-02-02 04:39 | NUR ---
PATIENT SLEEPING. NO SIGNS OF DISTRESS AT THIS TIME.
--- NOTE | 2019-02-02 06:33 | NUR ---
PATIENT IS AWAKE AND ALERT. NO SIGNS OF DISTRESS ON RA. BELONGINGS AND CALL LIGHT IN REACH. WILL ENDORSE TO DAY SHIFT RN FOR CONTINUITY OF CARE.
--- NOTE | 2019-02-02 07:20 | NUR ---
GAVE BEDSIDE REPORT TO DAY SHIFT RN. PATIENT RESTING IN BED. ENDORSING TO DAY SHIFT FOR CONTINUITY OF CARE.
--- NOTE | 2019-02-02 07:21 | NUR ---
RECEIVED REPORT FROM ELECTRIC BLANKET PACKER NURSE. PATIENT LYING DOWN IN BED SLEEPING, AROUSABLE BY VOICE. NO DISTRES NOTED. DENIES ANY PAIN AT THIS TIME. AAOX4, CALM, COOPERATIVE, SKIN COLOR APPROPRIATE TO ETHNICITY. WARM TO TOUCH. SKIN INTACT. RESPIRATIONS EVEN, UNLABORED, ON ROOM AIR. IV SITE INTACT, PATENT, AND INFUSING IVF PER MD ORDERS. REVIEWED PLAN OF CARE WITH PATIENT. PATIENT VERBALIZED UNDERSTANDING. SAFETY MEASURES IN PLACE, CALL LIGHT WITHIN REACH. WILL CONTINUE TO MONITOR.
[2019-02-02] MEDS: NACL 0.9% 1,000 ML IV SCH ×3 (07:35→17:35)
[2019-02-02 08:25] LABS: BASOPHILS % (AUTO) 0.5 % (0.0-2.0); EOSINOPHILS # (AUTO) 0.2 K/uL (0-0.4); EOSINOPHILS % (AUTO) 2.3 % (0.0-4.0); HEMATOCRIT 42.9 % (36-48); HEMOGLOBIN 14.4 g/dL (12.0-16.0); LYMPHOCYTES # (AUTO) 2.1 K/uL (2.5-16.5); LYMPHOCYTES % (AUTO) 26.4 % (20.5-51.1); MEAN CORPUSCULAR HEMOGLOBIN 29 pg (27-31); MEAN CORPUSCULAR HGB CONC 34 g/dL (33-37); MEAN CORPUSCULAR VOLUME 87.6 fL (80-94); MONOCYTES # (AUTO) 1.4 K/uL (0.8-1.0); MONOCYTES % (AUTO) 17.8 % (1.7-9.3); NEUTROPHILS # (AUTO) 4.1 K/uL (1.8-7.7); PLATELET COUNT (AUTO) 193 K/uL (140-450); RED CELL DISTRIBUTION WIDTH 14.3 % (11.6-13.7); WHITE BLOOD COUNT (AUTO) 7.8 K/uL (4.8-10.8)
[2019-02-02 08:28] LABS: ANION GAP 12.4 (8-16); CARBON DIOXIDE 28.7 mmol/L (21-32); CREATININE 0.7 mg/dL (0.6-1.3); POTASSIUM 3.1 mmol/L (3.5-5.1)
[2019-02-02] MEDS: traZODone 50 MG TAB PO SCH (09:00)
[2019-02-02] MEDS: ONDANSETRON 4 MG/2 ML VIAL IVP PRN (09:02)
[2019-02-02] MEDS: LOSARTAN 50 MG TAB PO SCH (09:05)
[2019-02-02] MEDS: CARVEDILOL 3.125 MG TAB PO SCH ×2 (09:05→20:58)
[2019-02-02] MEDS: APIXABAN 2.5 MG TAB PO SCH ×2 (09:07→21:00)
[2019-02-02] MEDS: MORPHINE SULFATE 4 MG/ML SYR IVP PRN ×2 (09:18→22:20)
--- NOTE | 2019-02-02 09:21 | NUR ---
CALLED DR RAND Lopez NOTIFIED THE HR UNCONTROLLED A-FIB NEW ORDER CARDIZEM 10MG IVPX1
[2019-02-02] MEDS: TAMSULOSIN 0.4 MG CAP PO SCH (09:26)
[2019-02-02] MEDS: HYDROCHLOROTHIAZIDE 25 MG TAB PO SCH (09:27)
[2019-02-02] MEDS: CHOLECALCIFEROL 1,000 IU TAB PO SCH (09:27)
[2019-02-02] MEDS: FUROSEMIDE 40 MG TAB PO SCH (09:27)
--- NOTE | 2019-02-02 09:30 | NUR ---
PATIENT SITTING IN BED WITH COMPLAINTS OF LOWER BACK PAIN. SCHEDULED MEDICATIONS DUE GIVEN. HEART RATE IS HIGH AROUND 140-160. GIVEN 10 MG IVP CARDIZEM PER DR. GORDILLO ORDERED. WILL CONTINUE TO MONITOR.
[2019-02-02] MEDS ORDERED: DILTIAZEM 25 MG/5 ML VIAL IVP SCH (09:45)
[2019-02-02] MEDS ORDERED: POTASSIUM CHLORIDE 10 MEQ TABER PO SCH (12:00)
--- NOTE | 2019-02-02 12:49 | NUR ---
PATIENT AMBULATED TO BATHROOM AND BACK TO BED. NO DISTRESS NOTED. DENIES ANY PAIN. SCHEDULED MEDICATIONS DUE GIVEN. WILL CONTINUE TO MONITOR.
--- NOTE | 2019-02-02 14:12 | NUR ---
PATIENT SITTING DOWN IN BED COMFORTABLY. NO DISTRESS NOTED. DENIES ANY PAIN. DENIES ANY HEADACHE, NAUSEA, DIZINESS AT THIS TIME. SCHEDULED MEDICATIONS DUE GIVEN. WILL CONTINUE TO MONITOR.
[2019-02-02] MEDS ORDERED: CLINICAL MONITORING MC PRN (16:15)
[2019-02-02] MEDS ORDERED: LEVOFLOXACIN 500 MG/D5W PREMIX 100 ML IV SCH (17:00)
--- NOTE | 2019-02-02 17:44 | NUR ---
PATIENT SITTING IN BED EATING DINNER. NO DISTRESS NOTED. DENIES ANY PAIN. SCHEDULED MEDICATIONS DUE GIVEN. DENIES ANY NAUSEA. WILL CONTINUE TO MONITOR.
--- NOTE | 2019-02-02 19:30 | NUR ---
GAVE REPORT TO WHITE METAL CASTER NURSE FOR CONTINUITY OF CARE. PATIENT IN STABLE CONDITION.
--- NOTE | 2019-02-02 19:35 | NUR ---
RECEIVED FROM AM RN IN BED SITTING UP AND WATCHING TV. CARE PLANS FOR THE NIGHT DISCUSSED WITH HER. CALL LIGHT WITH IN REACH. NO SOB. A/O X 4. TELEMETRY MONITORING. HR AT THIS TIME 114 CONTROLLED AFIB.
--- NOTE | 2019-02-02 21:07 | NUR ---
PT. ADMINISTERED ALL P.O. MEDICATIONS AND TOLERATED IT WELL. PT. ACCIDENTALLY DISCONTINUED HER IVF WITH TIP INTACT SHE WENT RESTROOM. PT. IS TALKING ON THE PHONE WITH A FRIEND AND STATED WHEN SHE IS DONE WITH HER TALK SHE WILL ALLOW ME TO PUT NEW IVF LINE. A/O X 4. ROM X4.
[2019-02-02] MEDS: PROMETHAZINE 25 MG/ML VIAL IVP PRN (22:20)
--- NOTE | 2019-02-02 22:29 | NUR ---
IVF SITE TO RIGHT HAND #24. TOLERATED WELL. MORPHINE IVP ADMINISTERED REQUESTED WITH PHENERGAN IVP RT NAUSEA COMPLAINT. VERBALIZES WELL.
--- NOTE | 2019-02-03 00:48 | NUR ---
WOKE UP EASILY WHEN VITAL SIGNS TAKEN. TELEMETRY MONITORING. WENT BACK TO SLEEP.
[2019-02-03 00:51] VITALS: BP 128/98
[2019-02-03] MEDS: ALBUTEROL 0.083% 2.5 MG/3 ML NEBU INH SCH ×3 (01:00→13:00)
[2019-02-03] MEDS: IPRATROPIUM 0.02% 0.5 MG/2.5 ML NEBU INH SCH ×3 (01:00→13:00)
[2019-02-03] MEDS: DILTIAZEM 30 MG TAB PO SCH ×3 (01:07→12:36)
--- NOTE | 2019-02-03 02:00 | NUR ---
PT. SLEEPING AT THIS TIME. NO RESTLESSNESS. CALL LIGHT WITH IN REACH.
[2019-02-03] MEDS: NACL 0.9% 1,000 ML IV SCH (03:35)
[2019-02-03 03:54] VITALS: BP 103/77
[2019-02-03] MEDS: MORPHINE SULFATE 4 MG/ML SYR IVP PRN ×3 (04:07→14:53)
--- NOTE | 2019-02-03 04:16 | NUR ---
PT. WOKE UP AND REQUESTED FOR PAIN RELIEVER. CRYING STATING THAT HER KIDNEY STONES ARE ACTING UP AGAIN. MEDICATED REQUESTED.
--- NOTE | 2019-02-03 05:33 | NUR ---
SLEEPING AT THIS TIME.
[2019-02-03 05:59] VITALS: BP 107/78
--- NOTE | 2019-02-03 07:30 | NUR ---
RECEIVED REPORT FROM PM NURSETERESA. PT IN BED RECEIVING BREATHING TX. RT AT BEDSIDE.
[2019-02-03 08:00] VITALS: BP 125/83
[2019-02-03] MEDS: traZODone 50 MG TAB PO SCH (09:00)
--- NOTE | 2019-02-03 09:00 | NUR ---
PT REFUSED TRAZODONE. STATES THAT SHE TAKES IT AT BEDTIME. WILL REQUEST CHANGE OF ORDER FROM
[2019-02-03] MEDS: HYDROCHLOROTHIAZIDE 25 MG TAB PO SCH (09:27)
[2019-02-03] MEDS: CHOLECALCIFEROL 1,000 IU TAB PO SCH (09:28)
[2019-02-03] MEDS: CARVEDILOL 3.125 MG TAB PO SCH (09:28)
[2019-02-03] MEDS: TAMSULOSIN 0.4 MG CAP PO SCH (09:32)
[2019-02-03] MEDS: FUROSEMIDE 40 MG TAB PO SCH (09:33)
[2019-02-03] MEDS: APIXABAN 2.5 MG TAB PO SCH (09:34)
[2019-02-03] MEDS: LOSARTAN 50 MG TAB PO SCH (09:35)
--- NOTE | 2019-02-03 10:34 | NUR ---
DR. BRIAN WILKINS CAME IN TO ASSESS PT. RECEIVED NEW ORDERS FOR CBC AND BMP STAT. ORDERS NOTED. Addendum: 02/03/19 at 1043 by Amirah Pinto RN ADDENDUM: DR. WILKINS NOTIFIED OF PT REQUEST TO CHANGE TRAZODONE TO HS. PER DR. ESPINO TO CHANGE. ORDER NOTED.
[2019-02-03 10:58] VITALS: BP 125/83
[2019-02-03] MEDS ORDERED: LEVO750T2 PO (11:04)
[2019-02-03 11:43] LABS: BASOPHILS % (AUTO) 0.5 % (0.0-2.0); EOSINOPHILS # (AUTO) 0.2 K/uL (0-0.4); EOSINOPHILS % (AUTO) 2.2 % (0.0-4.0); HEMATOCRIT 43.6 % (36-48); HEMOGLOBIN 14.7 g/dL (12.0-16.0); LYMPHOCYTES # (AUTO) 1.9 K/uL (2.5-16.5); MEAN CORPUSCULAR HEMOGLOBIN 30 pg (27-31); MEAN CORPUSCULAR HGB CONC 34 g/dL (33-37); MEAN CORPUSCULAR VOLUME 88.4 fL (80-94); MONOCYTES # (AUTO) 1.1 K/uL (0.8-1.0); MONOCYTES % (AUTO) 14.2 % (1.7-9.3); NEUTROPHILS # (AUTO) 4.4 K/uL (1.8-7.7); NEUTROPHILS % (AUTO) 58.1 % (42.2-75.2); PLATELET COUNT (AUTO) 206 K/uL (140-450); RED BLOOD CELL COUNT(AUTO) 4.93 MIL/uL (4.20-5.40); RED CELL DISTRIBUTION WIDTH 14.3 % (11.6-13.7); WHITE BLOOD COUNT (AUTO) 7.6 K/uL (4.8-10.8)
[2019-02-03 12:01] LABS: ANION GAP 9.5 (8-16); CARBON DIOXIDE 30.2 mmol/L (21-32); CREATININE 0.8 mg/dL (0.6-1.3); POTASSIUM 3.7 mmol/L (3.5-5.1)
--- NOTE | 2019-02-03 14:05 | NUR ---
called office of Dr Hollingsworth, [place] [phone] to make appointment spoke to Denita, and she said that they do not allow us to make appointment in behalf of the patient. Instructed patient to make appointment with Dr Hollingsworth, phone number provided to patient. Patient verbalized understanding.
--- NOTE | 2019-02-03 15:00 | NUR ---
Written & verbal discharge instructions, & written prescription provided to pt. Pt verbalized understanding & agree with discharge plans to f/u with PCP.
--- NOTE | 2019-02-03 16:05 | NUR ---
Pt discharged to home at this time. Left unit via wheelchair, accompanied by daughter. Name band removed. All belongings with pt upon departure. Left via private car.
[2019-02-03] MEDS ORDERED: traZODone 50 MG TAB PO SCH (21:00)
[2019-02-04] MEDS ORDERED: LEVOFLOXACIN 250 MG TAB PO SCH (09:00)
== END 2019-02-03 16:05 | disposition home or self-care (01) | DRG 871 ==
LOC: MED 11:22 → MTU 18:04 → MMU 01-31 18:17 → MTU 01-31 18:38
PROVIDERS: ADMIT Internal Medicine Pulmonary Disease; ATTEND Internal Medicine Pulmonary Disease
DX: A41.9 Sepsis, unspecified organism (principal); I50.21 Acute systolic (congestive) heart failure; N12 Tubulo-interstitial nephritis, not specified as acute or chronic; J44.1 Chronic obstructive pulmonary disease with (acute) exacerbation; E87.1 Hypo-osmolality and hyponatremia; N39.0 Urinary tract infection, site not specified; N20.0 Calculus of kidney; I48.2 Chronic atrial fibrillation; I11.0 Hypertensive heart disease with heart failure; E83.42 Hypomagnesemia; E87.6 Hypokalemia; Z16.19 Resistance to other specified beta lactam antibiotics
CPT/HCPCS: 36415; 71045; 71250; 80048; 80053; 81001; 82150; 83605; 83690; 83735; 83880; 84484; 84550; 85025; 87040; 87081; 87086; 87186; 93005; 94640; 96365; 96372; 96375; 96376; 99285; J0696; J1956; J2270; J2405; J2550; J3475; J3480; J3490; J7030; J7060; J7613; J7644; J8597; Q0092

== ENCOUNTER 2021-04-10 18:54 | Emergency (ER) | payer OTHER ==
[~2021-04-10] VITALS: Ht 154.9 cm; Wt 67.1 kg
[~2021-04-10 18:54] MED LIST changes: +LEVO750T2 PO
[2021-04-10 19:05] VITALS: BP 189/114
--- NOTE | 2021-04-10 19:14 | NUR ---
PT W/C ASSISTED TO BED 9.
[2021-04-10] MEDS ORDERED: PROCHLORPERAZINE 10 MG/2 ML VIAL ONE (20:01)
[2021-04-10] MEDS ORDERED: MORPHINE SULFATE 4 MG/ML SYR ONE (20:02)
[2021-04-10] MEDS ORDERED: PROCHLORPERAZINE 10 MG/2 ML VIAL IVP ONE (20:05)
[2021-04-10] MEDS ORDERED: NACL 0.9% 1,000 ML IV ONE (20:05)
[2021-04-10] MEDS ORDERED: MORPHINE SULFATE 4 MG/ML SYR IVP ONE ×2 (20:05→22:55)
[2021-04-10 20:48] LABS: APPEARANCE,URINE CLEAR (CLEAR); BILIRUBIN,URINE NEGATIVE (NEGATIVE); BLOOD, URINE 1+ (NEGATIVE); LEUKOCYTE ESTERASE ,URINE NEGATIVE (NEGATIVE); NITRITE, URINE NEGATIVE (NEGATIVE); PH,URINE 6.5 (5.0-9.0); UGLUCOSE NEGATIVE (NEGATIVE)
[2021-04-10 20:49] LABS: COLOR,URINE AMBER (YELLOW)
[2021-04-10 20:49] LABS: BASOPHILS % (AUTO) 0.2 % (0.0-2.0); HEMOGLOBIN 16.3 g/dL (12.0-16.0); LYMPHOCYTES # (AUTO) 1.2 K/uL (2.5-16.5); LYMPHOCYTES % (AUTO) 9.2 % (20.5-51.1); MEAN CORPUSCULAR HEMOGLOBIN 30 pg (27-31); MEAN CORPUSCULAR HGB CONC 33 g/dL (33-37); MEAN CORPUSCULAR VOLUME 89.8 fL (80-94); MONOCYTES # (AUTO) 0.4 K/uL (0.8-1.0); MONOCYTES % (AUTO) 2.6 % (1.7-9.3); PLATELET COUNT (AUTO) 168 K/uL (140-450); RED BLOOD CELL COUNT(AUTO) 5.46 MIL/uL (4.20-5.40); RED CELL DISTRIBUTION WIDTH 14.7 % (11.6-13.7); WHITE BLOOD COUNT (AUTO) 13.6 K/uL (4.8-10.8)
[2021-04-10 21:11] LABS: CALCIUM OXALATE CRYSTALS,UR 0-10 /HPF (None Seen); RBC,URINE 0-5 /HPF (0-5); WBC,URINE 0-5 /HPF (0-5)
--- NOTE | 2021-04-10 21:16 | NUR ---
PT TAKEN TO CT VIA JOSE ANTONIO
[2021-04-10 21:20] LABS: ALBUMIN 4.3 g/dL (3.4-5.0); ANION GAP 12.5 (8-16); CARBON DIOXIDE 29.8 mmol/L (21-32); CREATININE 0.9 mg/dL (0.6-1.3); POTASSIUM 3.3 mmol/L (3.5-5.1); TOTAL BILIRUBIN 1.3 mg/dL (0.0-1.0)
--- NOTE | 2021-04-10 21:27 | NUR ---
PT RETURNED FROM CT VIA [facility]
[2021-04-10] MEDS ORDERED: ONDA-24 SL (23:47)
[2021-04-10] MEDS ORDERED: BEN10 PO (23:47)
--- NOTE | 2021-04-11 00:01 | NUR ---
Patient discharged with v/s stable. Written and verbal after care instructions given and explained. Patient alert, oriented and verbalized understanding of instructions. Wheel Chair Assisted with to car. All questions addressed prior to discharge. ID band removed. Patient advised to follow up with PMD. Rx of ZOFRAN AND BENTYL given. Patient educated on indication of medication including possible reaction and side effects. Opportunity to ask questions provided and answered.
[2021-04-11 00:02] VITALS: BP 140/100
== END 2021-04-10 23:56 | disposition home or self-care (01) ==
LOC: MED 18:54
DX: R10.30 Lower abdominal pain, unspecified (principal); R30.0 Dysuria; R11.2 Nausea with vomiting, unspecified; R61 Generalized hyperhidrosis; E11.9 Type 2 diabetes mellitus without complications; I10 Essential (primary) hypertension; Z98.890 Other specified postprocedural states; Z79.899 Other long term (current) drug therapy
CPT/HCPCS: 36415; 74176; 80053; 81001; 83690; 85025; 96361; 96374; 96375; 96376; 99285; J0780; J2270; J7030

== ENCOUNTER 2022-01-26 16:07 | Observation (INO) | payer OTHER ==
[~2022-01-26] VITALS: Ht 157.5 cm; Wt 68.5 kg
[~2022-01-26 16:07] MED LIST changes: +BEN10 PO; +ONDA-188 SL
[2022-01-26 16:12] VITALS: BP 157/116
--- NOTE | 2022-01-26 16:12 | NUR ---
TO ER BED 12
--- NOTE | 2022-01-26 16:24 | NUR ---
DR. BARNARD BEDSIDE EVALUATING PT
[2022-01-26] MEDS ORDERED: NACL 0.9% 1,000 ML IV ONE (16:35)
--- NOTE | 2022-01-26 16:40 | NUR ---
71yo F PT COMPLAINS OF NAUSEA AND LOWER ABDOMEN PAIN. PT STATED SHE HAS HAD EPISODES OF VOMITING FOR A DAY. PT IS CURRENTL DIAPHORETIC AND HAS LABORED BREATHING. PT STATES SHE HAS TAKEN 3 DOSES OF ONDASTRON 3 HOURS APART AND HAS NO RELIEF IN PAIN. PT STATES BURNING FEELING WHEN URINATING.
[2022-01-26] MEDS ORDERED: MORPHINE SULFATE 4 MG/ML SYR IM ONE (16:45)
--- NOTE | 2022-01-26 16:46 | NUR ---
MOVED TO ER BED 10
[2022-01-26 17:18] LABS: BASOPHILS # (AUTO) 0.2 K/uL (0.00-0.22); BASOPHILS % (AUTO) 1.6 % (0.0-2.0); EOSINOPHILS # (AUTO) 0.5 K/uL (0-0.4); EOSINOPHILS % (AUTO) 4.9 % (0.0-4.0); HEMATOCRIT 49.7 % (36-48); HEMOGLOBIN 16.6 g/dL (12.0-16.0); LYMPHOCYTES # (AUTO) 1.3 K/uL (2.5-16.5); LYMPHOCYTES % (AUTO) 12.2 % (20.5-51.1); MEAN CORPUSCULAR HEMOGLOBIN 30 pg (27-31); MEAN CORPUSCULAR HGB CONC 34 g/dL (33-37); MEAN CORPUSCULAR VOLUME 90.7 fL (80-94); MONOCYTES # (AUTO) 0.5 K/uL (0.8-1.0); MONOCYTES % (AUTO) 4.6 % (1.7-9.3); NEUTROPHILS # (AUTO) 8.1 K/uL (1.8-7.7); NEUTROPHILS % (AUTO) 76.7 % (42.2-75.2); PLATELET COUNT (AUTO) 201 K/uL (140-450); RED BLOOD CELL COUNT(AUTO) 5.48 MIL/uL (4.20-5.40); RED CELL DISTRIBUTION WIDTH 14.5 % (11.6-13.7); WHITE BLOOD COUNT (AUTO) 10.6 K/uL (4.8-10.8)
[2022-01-26 17:28] LABS: ALBUMIN 4.2 g/dL (3.4-5.0); AMYLASE 32 U/L (25-115); ANION GAP 14.9 (8-16); ASPARTATE AMINOTRANSFERASE 20 U/L (15-37); CHLORIDE 104 mmol/L (98-107); CREATININE 0.7 mg/dL (0.6-1.3); GLUCOSE 128 mg/dL (74-106); LIPASE 30 U/L (73-393); POTASSIUM 3.9 mmol/L (3.5-5.1); SODIUM SERUM 139 mmol/L (136-145); TOTAL BILIRUBIN 1.2 mg/dL (0.0-1.0); UREA NITROGEN, BLOOD 11 mg/dL (7-18)
--- NOTE | 2022-01-26 17:35 | NUR ---
PT TAKEN TO CT VIA JOSE ANTONIO
--- NOTE | 2022-01-26 17:46 | NUR ---
PT RETURNED TO BED [address] [facility] [facility] [place]
--- NOTE | 2022-01-26 17:57 | NUR ---
PT SPOUSE DAVID DEXTER CONTACT INFO HOME [phone] CELL [phone]
[2022-01-26] MEDS ORDERED: diphenhydrAMINE 50 MG/ML VIAL IVP ONE ×2 (18:15→18:45)
[2022-01-26] MEDS ORDERED: MORPHINE SULFATE 4 MG/ML SYR IVP SCH (18:15)
--- NOTE | 2022-01-26 18:18 | NUR ---
ABI ESQUIVEL COLLECTED AND WALKED TO LAB
[2022-01-26] MEDS ORDERED: ALOG1TAB3 PO (18:29)
[2022-01-26] MEDS ORDERED: CEPH-588 PO (18:29)
[2022-01-26] MEDS ORDERED: RIVA20TA PO (18:29)
[2022-01-26] MEDS ORDERED: TAP5 PO (18:29)
[2022-01-26] MEDS ORDERED: AMLO10TA89 PO (18:29)
--- NOTE | 2022-01-26 18:29 | NUR ---
MED REC COMPLETED FOR PATIENT
--- NOTE | 2022-01-26 18:36 | NUR ---
PT SPOUSE DAVID IS TAKING PATIENT [facility]
[2022-01-26] MEDS ORDERED: METOCLOPRAMIDE 10 MG/2 ML INJ VIAL IVP ONE ×3 (18:40→18:45)
[2022-01-26] MEDS ORDERED: METOCLOPRAMIDE 10 MG/2 ML INJ VIAL ONE (18:44)
[2022-01-26] MEDS ORDERED: MORPHINE SULFATE 4 MG/ML SYR IVP ONE (18:45)
--- NOTE | 2022-01-26 18:53 | NUR ---
PT ACTIVELY VOMITTING BEDSIDE. ER MD MADE AWARE
--- NOTE | 2022-01-26 19:15 | NUR ---
Pt report given to MO[facility]STO [place]A. Transfer of care at this time.
[2022-01-26 19:28] LABS: APPEARANCE,URINE CLEAR (CLEAR); COLOR,URINE YELLOW (YELLOW); PH,URINE 8.5 (5.0-9.0)
[2022-01-26 19:29] LABS: UGLUCOSE NEGATIVE (NEGATIVE)
[2022-01-26 19:30] LABS: BILIRUBIN,URINE NEGATIVE (NEGATIVE); BLOOD, URINE NEGATIVE (NEGATIVE); LEUKOCYTE ESTERASE ,URINE NEGATIVE (NEGATIVE); NITRITE, URINE NEGATIVE (NEGATIVE)
--- NOTE | 2022-01-26 19:55 | NUR ---
AUTOMATION QA TESTER AT BEDSIDE
[2022-01-26] MEDS ORDERED: HYDROcodone/APAP 5/325 MG 1 TAB TAB PO PRN (20:25)
[2022-01-26] MEDS ORDERED: ONDANSETRON 4 MG/2 ML VIAL IVP PRN (20:25)
[2022-01-26] MEDS ORDERED: ACETAMINOPHEN 325 MG TAB PO PRN (20:25)
--- NOTE | 2022-01-26 20:33 | NUR ---
PT STATES SHE HAS NO RELIEF FROM MEDICATION SO FAR AND IS STILL NAUSEOUS. MD MADE AWARE OF PT CONDITION.
--- NOTE | 2022-01-26 21:00 | NUR ---
Patient will be admitted to care of DR CRONIN. Admited to TELE. Will go to room 104A. Belongings list completed. Report to MODESTO PIZANO..
--- NOTE | 2022-01-26 21:00 | NUR ---
PT TRANSPORTED VIA GURNEY. PT IS AWAKE ON RA. PT IS ABLE TO AMBULATE. GAIT STEADY. PT HAS 18 GAUGE RIGHT AC WITH D5 1/2 NS RUNNING AT 80 ML/HR. PT HAS CLEAR LUNGS SOUNDS. ABD IS SOFT AND NON-TENDER. PT COMPLAINING OF VOMITING AND ABD PAIN. WILL MEDICATE PER MD ORDER. NO OTHER COMPLAINS. PT EDUCATED PROPERTY ADJUSTER LIGHT SYSTEM. CALL LIGHT WITHIN REACH. ALL SAFETY MEASURERS TAKEN. WILL CONTINUE TO MONITOR THE PT.
[2022-01-26 21:20] VITALS: BP 182/117
[2022-01-26] MEDS: MORPHINE SULFATE 4 MG/ML SYR IVP PRN (22:10)
[2022-01-26] MEDS: DEXT 5% / NACL 0.45% 1,000 ML IV SCH (22:10)
[2022-01-26] MEDS ORDERED: hydrALAZINE 25 MG TAB PO PRN (22:45)
[2022-01-26] MEDS ORDERED: amLODIPine 5 MG TAB PO SCH (22:45)
[2022-01-26] MEDS ORDERED: LABETALOL 100 MG/20 ML VIAL IVP PRN (22:45)
--- NOTE | 2022-01-26 22:45 | NUR ---
MESSAGED DR. CRONIN FOR PT BP 182/117 ALSO FOR PT COMPLAINING OF N/V. DR. CRONIN CALLED BACK AND ORDERED PRN BP MEDS. HE SAID TO DISCONTINUE ZOFRAN. HE DID NOT ORDER ANY OTHER NAUSEA MEDICATIONS AND DOES NOT WANT TO GIVE ZOFRAN TO PT DUE TO EKG READINGS. PT MADE AWARE AND WANTS SOMETHING FOR NAUSEA AND VOMITING. CALLED ROUTER OPERATOR TO TALK TO PT SINCE PT WANTED TO TALK TO SOMEONE ELSE ABOUT THE SITUATION.
[2022-01-27] VITALS: BP 161/114
[2022-01-27] MEDS ORDERED: amLODIPine 5 MG TAB PO SCH (02:15)
[2022-01-27] MEDS: MORPHINE SULFATE 4 MG/ML SYR IVP PRN ×5 (02:22→23:28)
--- NOTE | 2022-01-27 02:25 | NUR ---
PT IS COMPLAINING OF ABD PAIN. MEDICATED PER MD ORDER. NO ADVERSE EFFECTS NOTED. NO FURTHER COMPLAINS FROM PT. WILL CONTINUE TO MONITOR THE PT.
[2022-01-27 04:00] VITALS: BP 157/106
--- NOTE | 2022-01-27 04:45 | NUR ---
PT IS SLEEPING IN BED COMFORTABLY. PT IS NOT IN ANY DISTRESS. BREATHING EVEN AND UNLABORED. IVF RUNNING PER MD ORDER. CALL LIGHT WITHIN REACH. ALL SAFETY MEASURES TAKEN. WILL CONTINUE TO MONITOR THE PT.
[2022-01-27 06:55] LABS: BASOPHILS % (AUTO) 0.2 % (0.0-2.0); HEMOGLOBIN 15.6 g/dL (12.0-16.0); LYMPHOCYTES # (AUTO) 1.5 K/uL (2.5-16.5); MEAN CORPUSCULAR HEMOGLOBIN 30 pg (27-31); MEAN CORPUSCULAR HGB CONC 33 g/dL (33-37); MEAN CORPUSCULAR VOLUME 91.3 fL (80-94); MONOCYTES # (AUTO) 0.6 K/uL (0.8-1.0); MONOCYTES % (AUTO) 7.3 % (1.7-9.3); NEUTROPHILS # (AUTO) 6.7 K/uL (1.8-7.7); NEUTROPHILS % (AUTO) 75.5 % (42.2-75.2); PLATELET COUNT (AUTO) 179 K/uL (140-450); RED BLOOD CELL COUNT(AUTO) 5.15 MIL/uL (4.20-5.40); RED CELL DISTRIBUTION WIDTH 14.6 % (11.6-13.7); WHITE BLOOD COUNT (AUTO) 8.9 K/uL (4.8-10.8)
[2022-01-27 07:22] LABS: ALBUMIN 3.7 g/dL (3.4-5.0); ANION GAP 13.3 (8-16); ASPARTATE AMINOTRANSFERASE 18 U/L (15-37); CARBON DIOXIDE 24.1 mmol/L (21-32); CHLORIDE 102 mmol/L (98-107); CREATININE 0.6 mg/dL (0.6-1.3); GLUCOSE 154 mg/dL (74-106); LIPASE 20 U/L (73-393); MAGNESIUM 1.8 mg/dL (1.8-2.4); PHOSPHORUS 2.4 mg/dL (2.5-4.9); POTASSIUM 3.4 mmol/L (3.5-5.1); SODIUM SERUM 136 mmol/L (136-145); UREA NITROGEN, BLOOD 10 mg/dL (7-18)
--- NOTE | 2022-01-27 07:23 | NUR ---
ENDORSED PT TO DAY SHIFT RN FOR CONTINUITY OF CARE. PT IS STABLE.
--- NOTE | 2022-01-27 07:24 | NUR ---
RECEIVED BEDSIDE REPORT FROM ROLE PLAYER NURSE FOR CONTINUOUS OF CARE, PT RESTING, NO DISTRESS NOTED, ALERT ORIENTED, ABLE TO LET NEEDS KNOWN, IV TO RIGHT AC 18G PATENT INTACT, INFUSING D5 1/2 NS @80ML/HR, INFUSING WELL, PT ON ROOM AIR, NO SOB NOTED, INITIAL ASSESSMENT DONE, ALL SAFETY PRECAUTION MET, CALL LIGHT WITHIN REACH, WILL CONTINUE TO MONITOR.
[2022-01-27 08:00] VITALS: BP 172/101
[2022-01-27] MEDS ORDERED: POTASSIUM CHLORIDE 10 MEQ TABER PO SCH (08:40)
[2022-01-27] MEDS: DEXT 5% / NACL 0.45% 1,000 ML IV SCH ×2 (08:55→12:28)
[2022-01-27] MEDS: traZODone 50 MG TAB PO SCH ×2 (09:00→09:43)
[2022-01-27] MEDS ORDERED: RIVAROXABAN 10 MG TAB PO SCH (09:00)
--- NOTE | 2022-01-27 09:01 | NUR ---
PT REFUSED TO TAKE MORNING MEDICATIONS DUE TO FEELING NAUSEOUS, PT STATED HAS BEEN VOMITING AND UNABLE TO TAKE PO INTAKE. NO NAUSEA MEDICATION AT THIS MOMENT. NOTIFY DR AMAYA, AWAITING FOR CALL BACK.
--- NOTE | 2022-01-27 09:30 | NUR ---
PT C/O NAUSEA, AND IS CURRENTLY VOMITING, NOTIFIED DR AMAYA, PT STATED AT HOME WAS TAKING ZOFRAN AND ITS NOT WORKING, ALSO WAS ADVISED BY ER DOC TO NOT TAKE ZOFRAN. PER TO ORDER REGLAN 10MG Q6H, AND PHENEGRAN 25MG Q6H. WILL CONTINUE WITH ORDERS. Addendum: 01/27/22 at 1725 by Samanta Clark RN REGLAN DOSE WAS CHANGED BY PHARMACY TO 5MG DUE TO RENAL DOSING.
[2022-01-27] MEDS: METOCLOPRAMIDE 10 MG/2 ML INJ VIAL IVP PRN ×3 (09:41→23:25)
--- NOTE | 2022-01-27 09:41 | NUR ---
REGLAN GIVEN PER DR ORDER, WILL CONTINUE TO MONITOR.
[2022-01-27] MEDS: amLODIPine 5 MG TAB PO SCH (09:43)
[2022-01-27] MEDS: methIMAzole 5 MG TAB PO SCH (09:44)
[2022-01-27] MEDS: PROMETHAZINE 25 MG/ML VIAL IVP PRN ×2 (10:51→17:13)
--- NOTE | 2022-01-27 10:51 | NUR ---
PT C/O ABD PAIN, MEDICATION GIVEN PER DR ORDER, WILL CONTINUE TO MONITOR.
--- NOTE | 2022-01-27 10:51 | NUR ---
PT STATED STILL FEELING NAUSEOUS, PHENERGAN GIVEN PER DR ORDER.
[2022-01-27 12:00] VITALS: BP 152/89
--- NOTE | 2022-01-27 15:09 | NUR ---
PT C/O ABD PAIN, MEDICATION GIVEN PER DR ORDER, WILL CONTINUE TO MONITOR.
--- NOTE | 2022-01-27 15:59 | NUR ---
PT FEELING NAUSEA AGAIN, REGLAN GIVEN, PT TOLERATED WELL, WILL CONTINUE TO MONITOR.
[2022-01-27 16:00] VITALS: BP 155/113
--- NOTE | 2022-01-27 16:10 | NUR ---
DR AMAYA AT BEDSIDE TALKING TO PT
[2022-01-27] MEDS ORDERED: METOCLOPRAMIDE 10 MG/2 ML INJ VIAL IVP SCH ×2 (16:50→17:25)
--- NOTE | 2022-01-27 17:13 | NUR ---
PT NAUSEATED, AND VOMITING, PHENERGAN GIVEN PER DR KHAN
--- NOTE | 2022-01-27 19:30 | NUR ---
ENDORSED PT TO TYPEWRITER TESTER NURSE FOR CONTINUOUS OF CARE.
[2022-01-27 20:00] VITALS: BP 168/120
--- NOTE | 2022-01-27 20:00 | NUR ---
GET THE REPORT FROM MORNING NURSE, PATIENT IS LYING ON BED , PATIENT IS ALERT AND ORIENTED X4, NO ANY COMPLAIN OF PAIN OR SHORTNESS OF BREATH, BP IS 168/120. PULSE: 102, BLOOD PRESSURE MEDS AND ALL SCHEDULE MEDS ARE GIVEN PER DR ORDER, CALL LIGHT IS WITHIN JOEY REACH WILL CONTINUE TO MONITOR.
[2022-01-27] MEDS: carvediloL 12.5 MG TAB PO SCH (20:19)
[2022-01-27] MEDS ORDERED: traZODone 50 MG TAB PO SCH (21:00)
[2022-01-28] VITALS: BP 157/102
--- NOTE | 2022-01-28 | NUR ---
PATIENT IS LYING ON BED , NO ANY COMPLAIN OF PAIN , DUE MEDS ARE GIVEN DR ORDER, VITAL SIGN IS WITHIN THE REACH ,CALL LIGHT IS WITHIN THE REACH WILL CONTINUE TO MONITOR.
[2022-01-28] MEDS ORDERED: hydrALAZINE 25 MG TAB PO PRN (03:50)
[2022-01-28] MEDS ORDERED: LABETALOL 100 MG/20 ML VIAL IVP PRN (03:50)
[2022-01-28 04:00] VITALS: BP 161/113
[2022-01-28] MEDS: PROMETHAZINE 25 MG/ML VIAL IVP PRN ×2 (05:06→12:57)
[2022-01-28] MEDS: MORPHINE SULFATE 4 MG/ML SYR IVP PRN (05:08)
--- NOTE | 2022-01-28 05:12 | NUR ---
PATIENT IS LYING ON BED , DUE MEDS ARE GIVEN DR ORDER ,CALL LIGHT IS WITHIN THE REACH WILL CONTINUE TO MONITOR
--- NOTE | 2022-01-28 05:14 | NUR ---
PT C/O OF NAUSEA AND HAD AN EPISODE X1 OF SPITTING U P SALIVA. PT ALSO C/O OF ABDOMINAL PAIN 04/21 AND SHOWED SIGN OF FACIAL GRIMACING. PT WAS GIVEN IVP MORPHINE FOR 05/22 PAIN. PO/PRN HYDRALAZINE GIVEN FOR SBP OF OVER 160 (161/113). WILL REEVALUATE EFFECTIVENESS OF MEDICATION LATER.
[2022-01-28 06:52] LABS: BASOPHILS % (AUTO) 0.4 % (0.0-2.0); EOSINOPHILS # (AUTO) 0.1 K/uL (0-0.4); EOSINOPHILS % (AUTO) 0.6 % (0.0-4.0); HEMATOCRIT 46.6 % (36-48); HEMOGLOBIN 15.5 g/dL (12.0-16.0); LYMPHOCYTES # (AUTO) 1.8 K/uL (2.5-16.5); LYMPHOCYTES % (AUTO) 16.5 % (20.5-51.1); MEAN CORPUSCULAR HEMOGLOBIN 30 pg (27-31); MEAN CORPUSCULAR HGB CONC 33 g/dL (33-37); MEAN CORPUSCULAR VOLUME 91.1 fL (80-94); MONOCYTES # (AUTO) 1.1 K/uL (0.8-1.0); MONOCYTES % (AUTO) 9.6 % (1.7-9.3); NEUTROPHILS # (AUTO) 8.1 K/uL (1.8-7.7); NEUTROPHILS % (AUTO) 72.9 % (42.2-75.2); PLATELET COUNT (AUTO) 183 K/uL (140-450); RED BLOOD CELL COUNT(AUTO) 5.11 MIL/uL (4.20-5.40); RED CELL DISTRIBUTION WIDTH 14.4 % (11.6-13.7); WHITE BLOOD COUNT (AUTO) 11.1 K/uL (4.8-10.8)
[2022-01-28 07:08] LABS: ALBUMIN 3.7 g/dL (3.4-5.0); ANION GAP 12.1 (8-16); ASPARTATE AMINOTRANSFERASE 23 U/L (15-37); CARBON DIOXIDE 25.1 mmol/L (21-32); CHLORIDE 101 mmol/L (98-107); CREATININE 0.6 mg/dL (0.6-1.3); GLUCOSE 139 mg/dL (74-106); LIPASE 37 U/L (73-393); MAGNESIUM 1.9 mg/dL (1.8-2.4); PHOSPHORUS 1.7 mg/dL (2.5-4.9); POTASSIUM 3.2 mmol/L (3.5-5.1); SODIUM SERUM 135 mmol/L (136-145); TOTAL BILIRUBIN 1.6 mg/dL (0.0-1.0); UREA NITROGEN, BLOOD 7 mg/dL (7-18)
[2022-01-28] MEDS: DEXT 5% / NACL 0.45% 1,000 ML IV SCH ×2 (07:29→10:03)
[2022-01-28 08:00] VITALS: BP 117/99
--- NOTE | 2022-01-28 08:00 | NUR ---
received patient from pm nurse, resting comfrotably in bed, no s/sx of pain or discomfort observed, will assume all care at this time
--- NOTE | 2022-01-28 08:29 | NUR ---
OTHER NURSE PULLED MEDICATIONS FROM [employer], VERIFIED MEDS AGAINST EMAR, WILL ADMINISTER ORDERED
--- NOTE | 2022-01-28 08:55 | NUR ---
PATIENT HAS BEEN SCREENED AND CATEGORIZED HIGH NUTRITION RISK. PATIENT WILL BE SEEN WITHIN 1-2 DAYS OF ADMISSION. 01/28/[address]
[2022-01-28] MEDS ORDERED: LOSARTAN 50 MG TAB PO SCH (09:00)
[2022-01-28] MEDS ORDERED: ENOXAPARIN 40 MG/0.4 ML SYR SUBQ SCH (09:00)
[2022-01-28] MEDS: METOCLOPRAMIDE 10 MG/2 ML INJ VIAL IVP PRN (09:11)
[2022-01-28] MEDS: methIMAzole 5 MG TAB PO SCH (09:15)
[2022-01-28] MEDS: amLODIPine 5 MG TAB PO SCH (09:16)
[2022-01-28] MEDS: carvediloL 12.5 MG TAB PO SCH (09:16)
[2022-01-28 12:00] VITALS: BP 122/85
--- NOTE | 2022-01-28 12:42 | NUR ---
P.T. NOTES P.T. EVAL COMPLETED; REFER TO EVAL FOR DETAILS; ENDORSED TO NURSING; PATIENT MAY BENEFIT W/ AMBULATION AD RAMANA W/ NURSE SUPERVISION.
--- NOTE | 2022-01-28 12:50 | NUR ---
patient c/o 5/10 generalized pain, and nausea, will administer prn phenergan and norco per emar
--- NOTE | 2022-01-28 16:51 | NUR ---
patient dc home, dischage instructions provided regarding med mgt, disease mgt and when to seek medical attention, iv dc with cath intact, no further questions or concerns at this time, patient wheeled out by rn to private automobile
== END 2022-01-28 16:55 | disposition home or self-care (01) ==
LOC: MED 16:07 → MTU 20:39 → INTOOBSV 20:39 → MTU 21:01
PROVIDERS: ADMIT Internal Medicine; ATTEND Internal Medicine
DX: R10.9 Unspecified abdominal pain (principal); Z20.822 Contact with and (suspected) exposure to COVID-19; R11.2 Nausea with vomiting, unspecified; I10 Essential (primary) hypertension; E03.9 Hypothyroidism, unspecified; I48.20 Chronic atrial fibrillation, unspecified; Z79.899 Other long term (current) drug therapy; Z90.710 Acquired absence of both cervix and uterus; Z87.11 Personal history of peptic ulcer disease; Z79.01 Long term (current) use of anticoagulants
CPT/HCPCS: 36415; 74176; 80053; 81003; 82150; 82948; 83605; 83690; 83735; 84100; 84484; 85025; 85379; 85610; 85730; 86886; 86900; 86901; 87040; 87081; 87426; 93005; 93307; 96361; 96372; 96374; 96375; 96376; 97163; 99285; G0378; J1200; J1650; J2270; J2550; J2765; J7030

== ENCOUNTER 2023-04-18 18:42 | Inpatient (IN) | payer OTHER ==
[~2023-04-18] VITALS: Ht 157.5 cm; Wt 68.0 kg
[~2023-04-18 18:42] MED LIST changes: +ALOG1TAB3 PO; +AMLO10TA89 PO; -APIX5TAB PO; -BEN10 PO; +CEPH-588 PO; +CHOL100084 PO; -HYDR-5122 PO; -LEVO500T2 PO; -LEVO750T2 PO; -ONDA-188 SL; -ONDA4ODT2 PO; +RIVA20TA PO; -SIMV20TA1 PO; -TAMS0.4C96 PO; +TAP5 PO; -VITD1000 PO
[2023-04-18 19:03] VITALS: BP 185/105; PULSE 68; RESP 20; TEMP 97.6; O2SAT 98
--- NOTE | 2023-04-18 19:20 | NUR ---
pt went to the bed 2
--- NOTE | 2023-04-18 19:30 | NUR ---
pt at the bedside
--- NOTE | 2023-04-18 19:40 | NUR ---
pt complaint about the pain abd 06/22 radiating to the back.
--- NOTE | 2023-04-18 19:50 | NUR ---
DR. Voss examining the patient
--- NOTE | 2023-04-18 19:53 | NUR ---
Pt went to the restroom.
[2023-04-18] MEDS ORDERED: MORPHINE SULFATE 4 MG/ML SYR IVP ONE (20:00)
[2023-04-18] MEDS ORDERED: ONDANSETRON 4 MG/2 ML VIAL IVP ONE (20:00)
[2023-04-18] MEDS ORDERED: hydrALAZINE 20 MG/ML VIAL IVP ONE (20:00)
[2023-04-18 20:10] LABS: APPEARANCE,URINE SL CLOUDY (CLEAR); BILIRUBIN,URINE 1+ (NEGATIVE); BLOOD, URINE 2+ (NEGATIVE); COLOR,URINE ORANGE (YELLOW); LEUKOCYTE ESTERASE ,URINE NEGATIVE (NEGATIVE); NITRITE, URINE NEGATIVE (NEGATIVE); UGLUCOSE NEGATIVE (NEGATIVE)
[2023-04-18 20:29] LABS: HEMOGLOBIN 16.1 g/dL (12.0-16.0); MEAN CORPUSCULAR HEMOGLOBIN 31 pg (27-31); MEAN CORPUSCULAR HGB CONC 34 g/dL (33-37); MEAN CORPUSCULAR VOLUME 91.9 fL (80-94); PLATELET COUNT (AUTO) 157 K/uL (140-450); RED BLOOD CELL COUNT(AUTO) 5.22 MIL/uL (4.20-5.40); RED CELL DISTRIBUTION WIDTH 13.9 % (11.6-13.7); WHITE BLOOD COUNT (AUTO) 8.2 K/uL (4.8-10.8)
--- NOTE | 2023-04-18 20:45 | NUR ---
Pt went to CT
[2023-04-18 20:46] LABS: ALBUMIN 4.1 g/dL (3.4-5.0); AMYLASE 21 U/L (25-115); ANION GAP 16.1 (8-16); ASPARTATE AMINOTRANSFERASE 23 U/L (15-37); CARBON DIOXIDE 25.9 mmol/L (21-32); CHLORIDE 102 mmol/L (98-107); CREATININE 0.8 mg/dL (0.6-1.3); GLUCOSE 153 mg/dL (74-106); LIPASE 27 U/L (73-393); SODIUM SERUM 140 mmol/L (136-145); TOTAL BILIRUBIN 1.2 mg/dL (0.0-1.0); UREA NITROGEN, BLOOD 13 mg/dL (7-18)
[2023-04-18 21:03] LABS: BASOPHILS % (MANUAL) 0 % (0-2); EOSINOPHILS % (MANUAL) 0 % (0-4); LYMPHOCYTES % (MANUAL) 15 % (20-46); MONOCYTES % (MANUAL) 2 % (5-12)
--- NOTE | 2023-04-18 21:03 | NUR ---
pt is vomitting, Dr. restrepo made aware.
[2023-04-18] MEDS ORDERED: METOCLOPRAMIDE 10 MG/2 ML INJ VIAL IVP ONE (21:10)
[2023-04-18 21:12] LABS: OTHER CASTS, URINE EPITHELIAL CASTS 1+ /LPF (None Seen); RBC,URINE 0-5 /HPF (0-5)
[2023-04-18] MEDS ORDERED: MORPHINE SULFATE 5 MG/ML VIAL IVP ONE (21:30)
[2023-04-18] MEDS ORDERED: MORPHINE SULFATE 10 MG/ML VIAL ONE (21:42)
[2023-04-18] MEDS: POLYETHYLENE GLYCOL 17 GM/PKT PO SCH (22:00)
[2023-04-18] MEDS: NACL 0.9% 1,000 ML IV SCH (22:05)
[2023-04-18] MEDS ORDERED: ACETAMINOPHEN 325 MG TAB PO PRN (22:05)
[2023-04-18] MEDS ORDERED: KCL 20 MEQ IN 100 mL PREMIX 200 ML IV PRN (22:05)
[2023-04-18] MEDS ORDERED: MAG SULF 2000 MG/WATER PREMIX 50 ML IV PRN (22:05)
[2023-04-18] MEDS ORDERED: HYDROcodone/APAP 5/325 MG 1 TAB TAB PO PRN (22:05)
[2023-04-18] MEDS ORDERED: LORazepam 1 MG TAB PO PRN (22:05)
[2023-04-18] MEDS ORDERED: carvediloL 12.5 MG TAB PO SCH (22:10)
[2023-04-18] MEDS ORDERED: CLONIDINE HYDROCHLORIDE 0.1 MG TAB PO PRN (22:10)
[2023-04-18] MEDS ORDERED: hydrALAZINE 20 MG/ML VIAL IVP PRN (22:10)
[2023-04-18] MEDS ORDERED: DILT-135 (22:34)
[2023-04-18] MEDS ORDERED: METO-485 PO (22:34)
--- NOTE | 2023-04-18 22:57 | NUR ---
ultraound at the bedside
[2023-04-18] MEDS: SENNA 8.6 MG TAB PO SCH (23:22)
--- NOTE | 2023-04-19 01:45 | NUR ---
pt went to restroom
[2023-04-19] MEDS: MORPHINE SULFATE 4 MG/ML SYR IVP PRN ×5 (01:57→20:54)
[2023-04-19] MEDS: ONDANSETRON 4 MG/2 ML VIAL IVP PRN ×3 (01:57→17:09)
[2023-04-19 05:27] LABS: BASOPHILS % (AUTO) 0.3 % (0.0-2.0); HEMATOCRIT 46.2 % (36-48); HEMOGLOBIN 15.7 g/dL (12.0-16.0); LYMPHOCYTES # (AUTO) 1.6 K/uL (2.5-16.5); LYMPHOCYTES % (AUTO) 16.6 % (20.5-51.1); MEAN CORPUSCULAR HEMOGLOBIN 31 pg (27-31); MEAN CORPUSCULAR HGB CONC 34 g/dL (33-37); MEAN CORPUSCULAR VOLUME 91.8 fL (80-94); MONOCYTES # (AUTO) 0.9 K/uL (0.8-1.0); MONOCYTES % (AUTO) 9.9 % (1.7-9.3); NEUTROPHILS % (AUTO) 73.2 % (42.2-75.2); PLATELET COUNT (AUTO) 156 K/uL (140-450); RED BLOOD CELL COUNT(AUTO) 5.04 MIL/uL (4.20-5.40); WHITE BLOOD COUNT (AUTO) 9.6 K/uL (4.8-10.8)
[2023-04-19 06:35] LABS: ALBUMIN 3.5 g/dL (3.4-5.0); ASPARTATE AMINOTRANSFERASE 18 U/L (15-37); CARBON DIOXIDE 27.4 mmol/L (21-32); CHLORIDE 103 mmol/L (98-107); GLUCOSE 128 mg/dL (74-106); MAGNESIUM 1.7 mg/dL (1.8-2.4); POTASSIUM 3.4 mmol/L (3.5-5.1); SODIUM SERUM 139 mmol/L (136-145); UREA NITROGEN, BLOOD 14 mg/dL (7-18)
[2023-04-19 06:47] LABS: CREATININE 0.7 mg/dL (0.6-1.3)
--- NOTE | 2023-04-19 07:19 | NUR ---
REPORT RECEIVED FROM BRIDGETTE SALVADOR. ASSUMED CARE AT THIS TIME
--- NOTE | 2023-04-19 08:16 | NUR ---
The patient's care was reviewed and supervised by SHARRI MOMIN RN.
--- NOTE | 2023-04-19 08:16 | NUR ---
PATIENT PRESENTS TO ED WITH RTFLANK PAIN, HTN . PT STATES . DENIES N/V/D; SKIN IS PINK/WARM/DRY; AAOX4 WITH EVEN AND STEADY GAIT; LUNGS CLEAR BL; HR EVEN AND REGULAR; PT DENIES ANY FEVER, CP, SOB, OR COUGH AT THIS TIME; PATIENT STATES PAIN OF 7/10 AT THIS TIME; VSS; PATIENT POSITIONED FOR COMFORT; HOB ELEVATED; BEDRAILS UP X2; BED DOWN. ER MD MADE AWARE OF PT STATUS.PTTRANSFERED TO TELE VIA ACLS PROTOCOL
--- NOTE | 2023-04-19 08:17 | NUR ---
Patient will be admitted to care of MD AMOS. Admited to TELE. Will go to room 119A. Belongings list completed. Report to SHANTEL RN .
--- NOTE | 2023-04-19 08:30 | NUR ---
RECEIVED REPORT FROM ER NURSE, PT ARRIVED IN THE UNIT VIA GURNEY. WALKED TO HER BED. PT IS IN 2L NC. ORIENTED PT TO THE NEW ENVIRONMENT, BED MECHANICS, CALL LIGHT, TV, BATHROOM, BED WHEELS ON BREAK. PT IS STABLE, NO SIGN OF DISTRESS. CALL LIGHT WITHIN REACH.
[2023-04-19] MEDS ORDERED: NON-FORMULARY ITEM (Atorvastatin Calcium 1 TAB) PO SCH (09:00)
[2023-04-19] MEDS ORDERED: NON-FORMULARY ITEM (Amlodipine Besylate (Amlodipine) 10 MG) PO SCH (09:00)
[2023-04-19] MEDS ORDERED: ENOXAPARIN 40 MG/0.4 ML SYR SUBQ SCH (09:00)
[2023-04-19] MEDS: methIMAzole 5 MG TAB PO SCH (09:45)
[2023-04-19 10:00] VITALS: PULSE 116
[2023-04-19] MEDS: carvediloL 12.5 MG TAB PO SCH ×2 (10:57→20:30)
[2023-04-19] MEDS: DILTIAZEM 120 MG CAPER PO SCH (10:58)
[2023-04-19] MEDS: LOSARTAN 50 MG TAB PO SCH (10:58)
[2023-04-19] MEDS: RIVAROXABAN 10 MG TAB PO SCH (11:00)
[2023-04-19] MEDS: SENNA 8.6 MG TAB PO SCH ×2 (11:05→20:29)
[2023-04-19] MEDS: ATORVASTATIN 20 MG TAB PO SCH (11:05)
[2023-04-19] MEDS: LACTULOSE 20 GM/30 ML UDC PO SCH ×3 (11:06→17:10)
[2023-04-19] MEDS: POLYETHYLENE GLYCOL 17 GM/PKT PO SCH ×2 (11:06→20:28)
[2023-04-19] MEDS: DOCUSATE SODIUM 100 MG GELCAP PO SCH (11:08)
[2023-04-19] MEDS: amLODIPine 5 MG TAB PO SCH (11:09)
[2023-04-19 12:00] VITALS: BP 148/106; PULSE 116; PULSE 96; RESP 17; TEMP 98; O2SAT 97
--- NOTE | 2023-04-19 12:00 | NUR ---
PATIENT VERBALIZES OF FLANK PAIN BUT STATES SHE CAN MANAGE THE PAIN WITH ENOUGH REST. PATIENT STABLE
[2023-04-19] MEDS: NACL 0.9% 1,000 ML IV SCH ×2 (14:50→23:05)
[2023-04-19 16:00] VITALS: BP 130/74; PULSE 86; PULSE 93; RESP 18; TEMP 97.7; O2SAT 97
--- NOTE | 2023-04-19 19:25 | NUR ---
ENDORSED TO NIGHT NURSE FOR CONTINUITY OF CARE. PT IS ASLEEP, AWAKEN BY NAME. NO SIGN OF DISTRESS. CALL LIGHT WITHIN REACH.
--- NOTE | 2023-04-19 19:26 | NUR ---
RECEIVED REPORT FROM SHANTEL RN. PATIENT AWAKE RESTING IN BED. NO ACUTE DISTRESS NOTED. IVF NS INFUSING WELL TO RIGHT FOREARM. NO COMPLAINTS OF PAIN AT THIS TIME. CALL LIGHT WITHIN REACH. AMBULATORY. BED WHEELS LOCKED IN LOW POSITION.
[2023-04-19 19:53] VITALS: PULSE 93; RESP 15; O2SAT 100
--- NOTE | 2023-04-19 19:58 | NUR ---
PT HAS SATURATION OF 100% ON ROOM, CLEAR BREATH SOUNDS. CALL LIGHT WITHIN REACH
[2023-04-19 20:00] VITALS: BP 160/108; PULSE 84; PULSE 97; RESP 18; TEMP 97.7; O2SAT 94
[2023-04-19 20:18] VITALS: PULSE 86; RESP 15; O2SAT 100
--- NOTE | 2023-04-19 20:30 | NUR ---
SCHEDULED MEDICATIONS DUE ADMINISTERED.
[2023-04-19] MEDS: ZOLPIDEM 5 MG TAB PO PRN (20:39)
[2023-04-20] VITALS (8 sets, daily range): BP systolic 125–149; BP diastolic 79–109; PULSE 64–117; RESP 15–18; TEMP 97.4–98.5; O2SAT 96–100
[2023-04-20] MEDS: MORPHINE SULFATE 4 MG/ML SYR IVP PRN ×4 (01:25→22:02)
--- NOTE | 2023-04-20 01:25 | NUR ---
PATIENT COMPLAINED OF SEVERE FLANK PAIN, MEDICATED ORDERED.
[2023-04-20] MEDS: POTASSIUM CHLORIDE 10 MEQ TABER PO PRN (04:07)
[2023-04-20 05:13] LABS: BASOPHILS # (AUTO) 0.1 K/uL (0.00-0.22); BASOPHILS % (AUTO) 0.5 % (0.0-2.0); EOSINOPHILS # (AUTO) 0.1 K/uL (0-0.4); EOSINOPHILS % (AUTO) 0.7 % (0.0-4.0); HEMOGLOBIN 16.7 g/dL (12.0-16.0); LYMPHOCYTES # (AUTO) 2.2 K/uL (2.5-16.5); LYMPHOCYTES % (AUTO) 20.8 % (20.5-51.1); MEAN CORPUSCULAR HEMOGLOBIN 31 pg (27-31); MEAN CORPUSCULAR HGB CONC 34 g/dL (33-37); MEAN CORPUSCULAR VOLUME 91.6 fL (80-94); MONOCYTES % (AUTO) 9.5 % (1.7-9.3); NEUTROPHILS # (AUTO) 7.3 K/uL (1.8-7.7); NEUTROPHILS % (AUTO) 68.5 % (42.2-75.2); PLATELET COUNT (AUTO) 160 K/uL (140-450); RED BLOOD CELL COUNT(AUTO) 5.35 MIL/uL (4.20-5.40); RED CELL DISTRIBUTION WIDTH 14.3 % (11.6-13.7); WHITE BLOOD COUNT (AUTO) 10.6 K/uL (4.8-10.8)
[2023-04-20 05:56] LABS: ALBUMIN 3.6 g/dL (3.4-5.0); ANION GAP 10.1 (8-16); ASPARTATE AMINOTRANSFERASE 22 U/L (15-37); CARBON DIOXIDE 28.2 mmol/L (21-32); CHLORIDE 100 mmol/L (98-107); CREATININE 0.7 mg/dL (0.6-1.3); GLUCOSE 110 mg/dL (74-106); MAGNESIUM 1.8 mg/dL (1.8-2.4); POTASSIUM 3.3 mmol/L (3.5-5.1); SODIUM SERUM 135 mmol/L (136-145); TOTAL BILIRUBIN 1.7 mg/dL (0.0-1.0); UREA NITROGEN, BLOOD 12 mg/dL (7-18)
--- NOTE | 2023-04-20 07:40 | NUR ---
ENDORSED PATIENT TO AM NURSE FOR CONTINUITY OF CARE.
--- NOTE | 2023-04-20 07:45 | NUR ---
RECEIVED PATIENT FROM PM NURSE FOR CONTINUATION OF CARE. PATIENT SEEN AWAKE EATING BREAKFAST. PATIENT VERBALIZES NO PAIN OF THE MOMENT. PATIENT ALSO STATES NO NAUSEA AND VOMITING SINCE LAST NIGHT. ABLE TO TO TOLERATE CURRENT DIET.
--- NOTE | 2023-04-20 08:57 | NUR ---
PATIENT HAS BEEN SCREENED AND CATEGORIZED LOW NUTRITION RISK. PATIENT WILL BE SEEN WITHIN 7 DAYS OF ADMISSION. 04/18/23-04/25/[address]
[2023-04-20] MEDS: RIVAROXABAN 10 MG TAB PO SCH (09:12)
[2023-04-20] MEDS: SENNA 8.6 MG TAB PO SCH ×2 (09:14→21:57)
[2023-04-20] MEDS: ATORVASTATIN 20 MG TAB PO SCH (09:14)
[2023-04-20] MEDS: DILTIAZEM 120 MG CAPER PO SCH (09:14)
[2023-04-20] MEDS: methIMAzole 5 MG TAB PO SCH (09:15)
[2023-04-20] MEDS: LOSARTAN 50 MG TAB PO SCH (09:15)
[2023-04-20] MEDS: DOCUSATE SODIUM 100 MG GELCAP PO SCH (09:16)
[2023-04-20] MEDS: amLODIPine 5 MG TAB PO SCH (09:16)
[2023-04-20] MEDS: POLYETHYLENE GLYCOL 17 GM/PKT PO SCH ×2 (09:16→21:57)
[2023-04-20] MEDS: carvediloL 12.5 MG TAB PO SCH ×2 (09:16→21:58)
[2023-04-20] MEDS: LACTULOSE 20 GM/30 ML UDC PO SCH ×3 (09:17→17:00)
[2023-04-20] MEDS: NACL 0.9% 1,000 ML IV SCH (11:48)
--- NOTE | 2023-04-20 19:15 | NUR ---
RECEIVED REPORT FROM AM NURSE FOR CONTINUITY OF CARE. PATIENT AWAKE ALERT SITTING ON THE BED. NO SOB NOTED ON ROOM AIR. IVF NS INFUSING AT 80 ML/HR. CALL LIGHT WITHIN REACH. BED ION LOW POSITION WHEELS LOCK. PATIENT ABLE TO AMBULATE.
--- NOTE | 2023-04-20 21:40 | NUR ---
PATIENT IS BACK FROM [place] SCAN, NO DISTRESS. TRANSFERRED TO ROOM 118 SAFELY. CALL LIGHT WITHIN REACH.
--- NOTE | 2023-04-20 21:57 | NUR ---
ALL SCHEDULED DUE MEDICATIONS GIVEN. WELL TOLERATED.
[2023-04-20] MEDS: ZOLPIDEM 5 MG TAB PO PRN (22:02)
[2023-04-21] VITALS: BP 142/112; PULSE 78; PULSE 90; RESP 18; TEMP 97.5; O2SAT 92
[2023-04-21] MEDS: NACL 0.9% 1,000 ML IV SCH ×3 (00:05→12:35)
[2023-04-21] MEDS: POTASSIUM CHLORIDE 10 MEQ TABER PO PRN (00:47)
[2023-04-21] MEDS: MORPHINE SULFATE 4 MG/ML SYR IVP PRN ×2 (03:07→09:15)
[2023-04-21 04:00] VITALS: BP 141/97; PULSE 76; RESP 18; TEMP 98.1; O2SAT 97
[2023-04-21 06:36] LABS: BASOPHILS % (AUTO) 0.4 % (0.0-2.0); EOSINOPHILS # (AUTO) 0.1 K/uL (0-0.4); EOSINOPHILS % (AUTO) 1.1 % (0.0-4.0); HEMATOCRIT 47.6 % (36-48); HEMOGLOBIN 16.1 g/dL (12.0-16.0); LYMPHOCYTES # (AUTO) 1.9 K/uL (2.5-16.5); LYMPHOCYTES % (AUTO) 20.9 % (20.5-51.1); MEAN CORPUSCULAR HEMOGLOBIN 31 pg (27-31); MEAN CORPUSCULAR HGB CONC 34 g/dL (33-37); MEAN CORPUSCULAR VOLUME 91.4 fL (80-94); MONOCYTES # (AUTO) 0.9 K/uL (0.8-1.0); MONOCYTES % (AUTO) 10.5 % (1.7-9.3); NEUTROPHILS # (AUTO) 6.1 K/uL (1.8-7.7); NEUTROPHILS % (AUTO) 67.1 % (42.2-75.2); PLATELET COUNT (AUTO) 156 K/uL (140-450)
[2023-04-21 07:02] LABS: ALBUMIN 3.3 g/dL (3.4-5.0); ANION GAP 11.4 (8-16); ASPARTATE AMINOTRANSFERASE 26 U/L (15-37); CARBON DIOXIDE 23.9 mmol/L (21-32); CHLORIDE 103 mmol/L (98-107); CREATININE 0.6 mg/dL (0.6-1.3); GLUCOSE 120 mg/dL (74-106); MAGNESIUM 1.9 mg/dL (1.8-2.4); POTASSIUM 4.3 mmol/L (3.5-5.1); SODIUM SERUM 134 mmol/L (136-145); TOTAL BILIRUBIN 1.6 mg/dL (0.0-1.0); UREA NITROGEN, BLOOD 9 mg/dL (7-18)
--- NOTE | 2023-04-21 07:15 | NUR ---
BEDSIDE REPORT GIVEN TO DAY SHIFT NURSE FOR CONTINUITY OF CARE. PATIENT STABLE.
--- NOTE | 2023-04-21 07:15 | NUR ---
PT ON ROOM AIR. SATURATION 100%. CALL LIGHT WITHIN REACH OF PATIENT.
--- NOTE | 2023-04-21 07:16 | NUR ---
RECEIVED PT FROM BOARDER HAND NURSE FOR CONTINUITY OF CARE. PT IS AWAKE, AOX4 ABLE TO VERBALIZE NEEDS. RESPIRATIONS EVEN AND UNLABORED ON RA. IV ON R FA 22G, INFUSING NS @ 80. SKIN WARM AND DRY TO TOUCH. CALL LIGHT WITHIN REACH. ALL SAFETY PRECAUTIONS IN PLACE.
[2023-04-21 08:00] VITALS: BP 139/101; PULSE 121; PULSE 80; RESP 18; TEMP 97.2; O2SAT 99
[2023-04-21] MEDS: RIVAROXABAN 10 MG TAB PO SCH (08:24)
[2023-04-21] MEDS: DILTIAZEM 120 MG CAPER PO SCH (08:25)
[2023-04-21] MEDS: carvediloL 12.5 MG TAB PO SCH (08:26)
[2023-04-21] MEDS: amLODIPine 5 MG TAB PO SCH (08:26)
[2023-04-21] MEDS: DOCUSATE SODIUM 100 MG GELCAP PO SCH (08:27)
[2023-04-21] MEDS: methIMAzole 5 MG TAB PO SCH (08:27)
[2023-04-21] MEDS: LOSARTAN 50 MG TAB PO SCH (08:27)
[2023-04-21] MEDS ORDERED: CRUSHER, PILL MC ONE (08:31)
[2023-04-21] MEDS: LACTULOSE 20 GM/30 ML UDC PO SCH ×2 (08:41→13:00)
[2023-04-21] MEDS: POLYETHYLENE GLYCOL 17 GM/PKT PO SCH (08:41)
[2023-04-21] MEDS: SENNA 8.6 MG TAB PO SCH (08:41)
[2023-04-21] MEDS: ATORVASTATIN 20 MG TAB PO SCH (08:41)
--- NOTE | 2023-04-21 08:42 | NUR ---
ADMINISTERED SCHEDULED MEDS. PT TOLERATED WELL. PT REFUSING ATORVASTATIN, MIRALAX AND LACTULOSE. PT STATES SHE DOESNT TAKE THESE MEDS AT HOME. PROVIDED PT TEACHING REGARDING PRESCRIBED USE OF MEDS AND RISKS/BENEFITS OF TAKING. PT REFUSED AGAIN.
[2023-04-21] MEDS ORDERED: ACET-10509 PO (10:28)
[2023-04-21] MEDS ORDERED: PANT40EC PO (10:28)
--- NOTE | 2023-04-21 11:21 | NUR ---
CALLED DR OSULLIVAN'S OFFICE LOCATED AT [facility] [address] [place] [address]. SPOKE WITH ANSON WHO WAS ABLE TO HELP ME SCHEDULE A FOLLOW UP APPOINTMENT FOR 04/22/2023 AT 1345 OVER THE PHONE. WENT TO ROOM BUT THERE WAS A NUCLEAR PRECAUTION ON DOOR SO WENT TO NURSE ROLAN TO RELAY MESSAGE TO PATIENT WELL GIVE APPOINTMENT SLIP.
[2023-04-21 12:47] VITALS: BP 139/101; PULSE 80; RESP 18; TEMP 97.2
--- NOTE | 2023-04-21 14:00 | NUR ---
REVIEWED DC PACKET WITH PT, PT VERBALIZED UNDERSTANDING. APPOINTMENT CARD WITH DR OSULLIVAN PROVIDED. ALL QUESTIONS ANSWERED. IV AND NAME BAND REMOVED. PT AWAITING HER PARTNER TO DC HOME. PT IN STABLE CONDITION.
== END 2023-04-21 15:00 | disposition home or self-care (01) | DRG 445 ==
LOC: MED 18:42 → MMU 22:07 → OBSVTOIN 22:08 → MTU 04-19 06:09
PROVIDERS: ADMIT Internal Medicine; ATTEND Internal Medicine
DX: K80.70 Calculus of gallbladder and bile duct without cholecystitis without obstruction (principal); R65.10 Systemic inflammatory response syndrome (SIRS) of non-infectious origin without acute organ dysfunction; I10 Essential (primary) hypertension; I48.91 Unspecified atrial fibrillation; K59.00 Constipation, unspecified; E11.9 Type 2 diabetes mellitus without complications; E80.6 Other disorders of bilirubin metabolism; Z79.01 Long term (current) use of anticoagulants; Z83.3 Family history of diabetes mellitus; Z82.49 Family history of ischemic heart disease and other diseases of the circulatory system; K57.30 Diverticulosis of large intestine without perforation or abscess without bleeding
CPT/HCPCS: 36415; 76705; 78445; 80053; 81001; 81003; 82150; 83690; 83735; 85025; 87081; 96374; 96375; 96376; 99285; A9510; J0360; J2270; J2405; J2765; Q0092

== ENCOUNTER 2023-12-21 10:11 | Inpatient (IN) | payer OTHER ==
[~2023-12-21] VITALS: Ht 160 cm; Wt 65.3 kg
[~2023-12-21 10:11] MED LIST changes: +ACET-10509 PO; -CEPH-588 PO; +DILT-135; +METO-485 PO; +PANT40EC PO
[2023-12-21 10:24] VITALS: BP 170/120; PULSE 68; RESP 15; TEMP 97.3; O2SAT 98
[2023-12-21] MEDS: ONDANSETRON 4 MG/2 ML VIAL IVP ONE ×2 (12:05→13:27)
[2023-12-21 12:11] LABS: BASOPHILS % (AUTO) 0.5 % (0.0-2.0); EOSINOPHILS % (AUTO) 0.1 % (0.0-4.0); HEMATOCRIT 43.5 % (36-48); HEMOGLOBIN 14.7 g/dL (12.0-16.0); LYMPHOCYTES # (AUTO) 0.7 K/uL (2.5-16.5); LYMPHOCYTES % (AUTO) 10.7 % (20.5-51.1); MEAN CORPUSCULAR HEMOGLOBIN 31 pg (27-31); MEAN CORPUSCULAR HGB CONC 34 g/dL (33-37); MEAN CORPUSCULAR VOLUME 92.3 fL (80-94); MONOCYTES # (AUTO) 0.1 K/uL (0.8-1.0); MONOCYTES % (AUTO) 1.8 % (1.7-9.3); NEUTROPHILS # (AUTO) 5.6 K/uL (1.8-7.7); NEUTROPHILS % (AUTO) 86.9 % (42.2-75.2); PLATELET COUNT (AUTO) 171 K/uL (140-450); RED BLOOD CELL COUNT(AUTO) 4.71 MIL/uL (4.20-5.40); RED CELL DISTRIBUTION WIDTH 14.9 % (11.6-13.7); WHITE BLOOD COUNT (AUTO) 6.4 K/uL (4.8-10.8)
[2023-12-21 12:12] LABS: APPEARANCE,URINE HAZY (CLEAR); BILIRUBIN,URINE NEGATIVE (NEGATIVE); BLOOD, URINE NEGATIVE (NEGATIVE); COLOR,URINE YELLOW (YELLOW); LEUKOCYTE ESTERASE ,URINE NEGATIVE (NEGATIVE); NITRITE, URINE NEGATIVE (NEGATIVE); PH,URINE 7.5 (5.0-9.0); PROTEIN,URINE 3+ (NEGATIVE); UGLUCOSE NEGATIVE (NEGATIVE)
[2023-12-21] MEDS: MORPHINE SULFATE 4 MG/ML SYR IVP ONE ×3 (12:12→15:48)
[2023-12-21 12:16] LABS: RBC,URINE 0-5 /HPF (0-5); SQUAMOUS EPITHELIAL CELL,UR 4-10 (MOD) /LPF (0-3 (FEW)); WBC,URINE 0-5 /HPF (0-5)
[2023-12-21 12:17] LABS: BACTERIA,URINE FEW /HPF (None Seen); URINE AMORPHOUS PHOSPHATES 1+ /HPF (None Seen)
[2023-12-21 12:26] LABS: ANION GAP 13.4 (8-16); CALCIUM 10.4 mg/dL (8.5-10.1); CARBON DIOXIDE 30.5 mmol/L (21-32); CHLORIDE 99 mmol/L (98-107); CREATININE 0.7 mg/dL (0.6-1.3); GLUCOSE 162 mg/dL (74-106); POTASSIUM 3.9 mmol/L (3.5-5.1); SODIUM SERUM 139 mmol/L (136-145); UREA NITROGEN, BLOOD 10 mg/dL (7-18)
[2023-12-21 12:35] LABS: ALANINE AMINOTRANSFERASE 16 U/L (12-78); ALBUMIN 4.1 g/dL (3.4-5.0); ALKALINE PHOSPHATASE 69 U/L (50-136); ASPARTATE AMINOTRANSFERASE 14 U/L (15-37); BILIRUBIN,DIRECT 0.3 mg/dL (0.0-0.3); LIPASE 11 U/L (16-77); TOTAL BILIRUBIN 1.2 mg/dL (0.0-1.0)
[2023-12-21 12:45] LABS: FLU A ANTIGEN negative (NEGATIVE); FLU B ANTIGEN NEGATIVE (NEGATIVE)
[2023-12-21] MEDS ORDERED: AMLO5TAB PO (15:09)
[2023-12-21] MEDS ORDERED: PRAV10TA4 PO (15:09)
[2023-12-21] MEDS ORDERED: OMEP20EC11 PO (15:09)
[2023-12-21] MEDS: diphenhydrAMINE 50 MG/ML VIAL IVP ONE (15:40)
[2023-12-21] MEDS: PROCHLORPERAZINE 10 MG/2 ML VIAL IVP ONE (15:43)
[2023-12-21] MEDS ORDERED: INSULIN LISPRO SLIDING SCALE 100 UNITS/ML VIAL SUBQ PRN (16:05)
[2023-12-21] MEDS ORDERED: ACETAMINOPHEN 325 MG TAB PO PRN (16:05)
[2023-12-21] MEDS ORDERED: DEXTROSE 50% 50 ML SYR IVP PRN (16:05)
[2023-12-21] MEDS ORDERED: LORazepam 2 MG/ML VIAL IVP PRN (16:05)
[2023-12-21] MEDS: NACL 0.9% 1,000 ML IV SCH (16:29)
[2023-12-21] MEDS: BLOOD GLUCOSE MONITORING 1 DEV DEV FS SCH (16:36)
[2023-12-21] MEDS ORDERED: hydrALAZINE 20 MG/ML VIAL ONE (22:08)
[2023-12-21] MEDS: MORPHINE SULFATE 2 MG/ML SYR IVP PRN (22:25)
[2023-12-21] MEDS: hydrALAZINE 20 MG/ML VIAL IVP PRN (22:30)
[2023-12-21] MEDS: ONDANSETRON 4 MG/2 ML VIAL IVP PRN (22:37)
[2023-12-21 22:45] VITALS: PULSE 82; PULSE 97; RESP 20; O2SAT 95; O2SAT 97
[2023-12-22] VITALS: BP 158/115; PULSE 82; RESP 20; TEMP 97.4; O2SAT 97
[2023-12-22] MEDS: PROCHLORPERAZINE 10 MG/2 ML VIAL IVP PRN (00:28)
[2023-12-22 08:00] VITALS: BP 143/90; PULSE 87; RESP 20; TEMP 99.2; O2SAT 97; O2SAT 98
[2023-12-22] MEDS: PANTOPRAZOLE 40 MG INJ VIAL IVP SCH (08:26)
[2023-12-22 13:17] LABS: BASOPHILS % (AUTO) 0.4 % (0.0-2.0); HEMATOCRIT 44.2 % (36-48); LYMPHOCYTES # (AUTO) 1.4 K/uL (2.5-16.5); LYMPHOCYTES % (AUTO) 14.9 % (20.5-51.1); MEAN CORPUSCULAR HEMOGLOBIN 31 pg (27-31); MEAN CORPUSCULAR HGB CONC 34 g/dL (33-37); MONOCYTES # (AUTO) 0.9 K/uL (0.8-1.0); MONOCYTES % (AUTO) 9.9 % (1.7-9.3); NEUTROPHILS # (AUTO) 6.8 K/uL (1.8-7.7); NEUTROPHILS % (AUTO) 74.8 % (42.2-75.2); PLATELET COUNT (AUTO) 178 K/uL (140-450); RED CELL DISTRIBUTION WIDTH 14.9 % (11.6-13.7); WHITE BLOOD COUNT (AUTO) 9.1 K/uL (4.8-10.8)
[2023-12-22 14:00] LABS: ANION GAP 12.5 (8-16); CALCIUM 8.9 mg/dL (8.5-10.1); CARBON DIOXIDE 26.9 mmol/L (21-32); CHLORIDE 101 mmol/L (98-107); CREATININE 0.7 mg/dL (0.6-1.3); GLUCOSE 141 mg/dL (74-106); POTASSIUM 3.4 mmol/L (3.5-5.1); SODIUM SERUM 137 mmol/L (136-145); UREA NITROGEN, BLOOD 15 mg/dL (7-18)
[2023-12-22 16:00] VITALS: BP 150/91; PULSE 87; RESP 20; TEMP 98.3; O2SAT 98
[2023-12-22] MEDS: POTASSIUM CHLORIDE 10 MEQ TABER PO PRN (18:29)
[2023-12-22 20:00] VITALS: PULSE 65; RESP 18; O2SAT 97
[2023-12-22] MEDS: MEDS-TO-BEDS MC SCH (21:09)
[2023-12-22] MEDS: carvediloL 12.5 MG TAB PO SCH (21:11)
[2023-12-22] MEDS: traZODone 50 MG TAB PO SCH (21:11)
[2023-12-23] MEDS: HYDROcodone/APAP 5/325 MG 1 TAB TAB PO PRN (01:47)
[2023-12-23 06:48] LABS: BASOPHILS % (AUTO) 0.3 % (0.0-2.0); EOSINOPHILS % (AUTO) 0.1 % (0.0-4.0); HEMATOCRIT 43.2 % (36-48); HEMOGLOBIN 14.8 g/dL (12.0-16.0); LYMPHOCYTES # (AUTO) 1.5 K/uL (2.5-16.5); LYMPHOCYTES % (AUTO) 19.2 % (20.5-51.1); MEAN CORPUSCULAR HEMOGLOBIN 31 pg (27-31); MEAN CORPUSCULAR HGB CONC 34 g/dL (33-37); MEAN CORPUSCULAR VOLUME 91.3 fL (80-94); MONOCYTES # (AUTO) 0.9 K/uL (0.8-1.0); NEUTROPHILS # (AUTO) 5.3 K/uL (1.8-7.7); NEUTROPHILS % (AUTO) 68.4 % (42.2-75.2); PLATELET COUNT (AUTO) 181 K/uL (140-450); RED BLOOD CELL COUNT(AUTO) 4.73 MIL/uL (4.20-5.40); RED CELL DISTRIBUTION WIDTH 14.9 % (11.6-13.7); WHITE BLOOD COUNT (AUTO) 7.7 K/uL (4.8-10.8)
[2023-12-23 07:21] LABS: ALANINE AMINOTRANSFERASE 17 U/L (12-78); ALBUMIN 3.4 g/dL (3.4-5.0); ALKALINE PHOSPHATASE 59 U/L (50-136); ANION GAP 15.5 (8-16); ASPARTATE AMINOTRANSFERASE 23 U/L (15-37); CALCIUM 8.1 mg/dL (8.5-10.1); CARBON DIOXIDE 21.5 mmol/L (21-32); CHLORIDE 100 mmol/L (98-107); CREATININE 0.6 mg/dL (0.6-1.3); GLUCOSE 122 mg/dL (74-106); SODIUM SERUM 133 mmol/L (136-145); TOTAL BILIRUBIN 1.8 mg/dL (0.0-1.0); TOTAL PROTEIN, SERUM 7.8 g/dL (6.4-8.2); UREA NITROGEN, BLOOD 14 mg/dL (7-18)
[2023-12-23 08:00] VITALS: BP 142/112; PULSE 73; RESP 18; TEMP 98.5; O2SAT 100
[2023-12-23 16:00] VITALS: BP 145/99; PULSE 84; RESP 20; TEMP 98.2; O2SAT 97
[2023-12-23] MEDS ORDERED: RIVA20TA PO (17:02)
[2023-12-23] MEDS ORDERED: DILT-135 PO (17:02)
[2023-12-23] MEDS ORDERED: ATOR10TA51 PO (17:02)
[2023-12-23] MEDS ORDERED: CARV12.5 PO (17:02)
[2023-12-23] MEDS ORDERED: TRAZ-343 PO (17:02)
[2023-12-23] MEDS ORDERED: ONDA-188 SL (17:03)
== END 2023-12-23 17:43 | disposition home or self-care (01) | DRG 74 ==
LOC: MED 10:11 → MMU 16:02 → OBSVTOIN 16:02 → INTOOBSV 16:02 → MTU 18:23
PROVIDERS: ADMIT Hospitalist; ATTEND Hospitalist
DX: E11.43 Type 2 diabetes mellitus with diabetic autonomic (poly)neuropathy (principal); R65.10 Systemic inflammatory response syndrome (SIRS) of non-infectious origin without acute organ dysfunction; I16.0 Hypertensive urgency; K80.20 Calculus of gallbladder without cholecystitis without obstruction; K57.90 Diverticulosis of intestine, part unspecified, without perforation or abscess without bleeding; I48.91 Unspecified atrial fibrillation; E78.5 Hyperlipidemia, unspecified; Z20.822 Contact with and (suspected) exposure to COVID-19; I10 Essential (primary) hypertension; E86.0 Dehydration; N20.0 Calculus of kidney; I25.10 Atherosclerotic heart disease of native coronary artery without angina pectoris; Z95.1 Presence of aortocoronary bypass graft; Z79.01 Long term (current) use of anticoagulants; Z82.49 Family history of ischemic heart disease and other diseases of the circulatory system; Z83.3 Family history of diabetes mellitus; Z87.11 Personal history of peptic ulcer disease; K31.84 Gastroparesis
CPT/HCPCS: 36415; 71045; 76705; 80048; 80053; 80076; 81001; 82948; 83690; 83880; 84484; 85025; 87081; 93005; C9113; J0360; J0780; J1200; J1644; J1815; J2270; J2405; Q0092

== ENCOUNTER 2024-05-17 14:44 | Observation (INO) | payer OTHER ==
[~2024-05-17] VITALS: Ht 160 cm; Wt 65.8 kg
[2024-05-17] MEDS: MAG SULF 2000 MG/WATER PREMIX 50 ML IV ONE
[~2024-05-17 14:44] MED LIST changes: -ACET-10509 PO; -ALOG1TAB3 PO; -AMLO10TA89 PO; +DAPA5TAB PO; -DILT-135; -HYDR-3293 PO; +LEVO750T75 PO; -METO-485 PO; +ONDA-188 SL; +OXYC-304 PO; -PANT40EC PO; -TAP5 PO
[2024-05-17 15:10] VITALS: BP 159/119; PULSE 140; RESP 41; TEMP 98; O2SAT 89
[2024-05-17 16:09] LABS: BASOPHILS % (AUTO) 0.2 % (0.0-2.0); HEMATOCRIT 44.2 % (36-48); HEMOGLOBIN 14.6 g/dL (12.0-16.0); LYMPHOCYTES # (AUTO) 0.9 K/uL (2.5-16.5); LYMPHOCYTES % (AUTO) 13.9 % (20.5-51.1); MEAN CORPUSCULAR HEMOGLOBIN 30 pg (27-31); MEAN CORPUSCULAR HGB CONC 33 g/dL (33-37); MEAN CORPUSCULAR VOLUME 89.9 fL (80-94); MONOCYTES # (AUTO) 0.7 K/uL (0.8-1.0); MONOCYTES % (AUTO) 10.5 % (1.7-9.3); NEUTROPHILS # (AUTO) 5.1 K/uL (1.8-7.7); NEUTROPHILS % (AUTO) 75.4 % (42.2-75.2); PLATELET COUNT (AUTO) 171 K/uL (140-450); RED BLOOD CELL COUNT(AUTO) 4.92 MIL/uL (4.20-5.40); RED CELL DISTRIBUTION WIDTH 17.4 % (11.6-13.7); WHITE BLOOD COUNT (AUTO) 6.7 K/uL (4.8-10.8)
[2024-05-17] MEDS ORDERED: ONDANSETRON 4 MG/2 ML VIAL ONE (16:23)
[2024-05-17] MEDS: NACL 0.9% 1,000 ML IV ONE (16:29)
[2024-05-17 16:30] LABS: ANION GAP 17.7 (8-16); CALCIUM 10.3 mg/dL (8.5-10.1); CARBON DIOXIDE 25.6 mmol/L (21-32); CHLORIDE 95 mmol/L (98-107); CREATININE 0.9 mg/dL (0.6-1.3); GLUCOSE 133 mg/dL (74-106); SODIUM SERUM 136 mmol/L (136-145); UREA NITROGEN, BLOOD 15 mg/dL (7-18)
[2024-05-17] MEDS: ONDANSETRON 4 MG/2 ML VIAL IVP ONE (16:31)
[2024-05-17 16:33] LABS: POTASSIUM 2.3 mmol/L (3.5-5.1)
[2024-05-17 16:50] LABS: ALANINE AMINOTRANSFERASE 34 U/L (12-78); ALBUMIN 3.7 g/dL (3.4-5.0); ALKALINE PHOSPHATASE 43 U/L (50-136); ASPARTATE AMINOTRANSFERASE 43 U/L (15-37); BILIRUBIN,DIRECT 1.2 mg/dL (0.0-0.3); LIPASE 11 U/L (16-77); MAGNESIUM 1.5 mg/dL (1.8-2.4); PHOSPHORUS 3.8 mg/dL (2.5-4.9); THYROID STIMULATING HORMONE 0.43 uIU/mL (0.34-3.74); TOTAL BILIRUBIN 2.6 mg/dL (0.0-1.0)
[2024-05-17] MEDS: MORPHINE SULFATE 4 MG/ML SYR IVP ONE ×2 (17:04→18:59)
[2024-05-17 17:05] LABS: BLOOD GAS BASE EXCESS -1.3 mmol/L (-2.0-2.0); BLOOD GAS HCO3 20.3 mmol/L (22-26); BLOOD GAS O2 SAT% 98.2 % (92.0-98.5); BLOOD GAS PCO2 28.4 mmHg (35-45); BLOOD GAS PO2 114.1 mmHg (75-100)
[2024-05-17 17:19] LABS: APPEARANCE,URINE CLEAR (CLEAR)
[2024-05-17 17:20] LABS: COLOR,URINE ORANGE (YELLOW)
[2024-05-17 17:22] LABS: BLOOD, URINE 1+ (NEGATIVE); PROTEIN,URINE 3+ (NEGATIVE); UGLUCOSE NEGATIVE (NEGATIVE)
[2024-05-17 17:23] LABS: BILIRUBIN,URINE 2+ (NEGATIVE); LEUKOCYTE ESTERASE ,URINE NEGATIVE (NEGATIVE); NITRITE, URINE NEGATIVE (NEGATIVE)
[2024-05-17 17:30] LABS: BACTERIA,URINE >30 (MANY) /HPF (None Seen); ICTOTEST NEGATIVE (NEGATIVE); SQUAMOUS EPITHELIAL CELL,UR 4-10 (MOD) /LPF (0-3 (FEW)); WBC,URINE 0-5 /HPF (0-5)
[2024-05-17] MEDS: POTASSIUM CHLORIDE 40 MEQ, LIDOCAINE 1% 25 MG in NACL 0.9% 250 ML IV ONE (18:36)
[2024-05-17] MEDS: POTASSIUM CHLORIDE 20% 40 MEQ/15 ML UDC PO ONE ×2 (18:54→18:57)
[2024-05-17] MEDS: METOPROLOL 5 MG/5 ML VIAL IVP ONE (19:13)
[2024-05-17 20:19] LABS: LACTIC ACID 2.2 mmol/L (0.4-2.0)
[2024-05-17] MEDS ORDERED: ACETAMINOPHEN 325 MG TAB PO PRN (21:15)
[2024-05-17] MEDS ORDERED: HYDROcodone/APAP 5/325 MG 1 TAB TAB PO PRN (21:15)
[2024-05-17] MEDS ORDERED: DEXTROSE 50% 50 ML SYR IVP PRN (21:15)
[2024-05-17] MEDS: METOPROLOL 5 MG/5 ML VIAL IV ONE (22:18)
[2024-05-17] MEDS: MORPHINE SULFATE 2 MG/ML SYR IVP PRN (23:48)
[2024-05-18] MEDS ORDERED: MAG SULF 2000 MG/WATER PREMIX 50 ML IV ONE (00:02)
[2024-05-18] MEDS: DILTIAZEM 25 MG/5 ML VIAL IVP SCH (00:56)
[2024-05-18] MEDS: ONDANSETRON 4 MG/2 ML VIAL IVP PRN (06:02)
[2024-05-18 06:20] VITALS: O2SAT 97
[2024-05-18 07:32] LABS: BASOPHILS % (AUTO) 0.3 % (0.0-2.0); HEMATOCRIT 48.1 % (36-48); HEMOGLOBIN 16.1 g/dL (12.0-16.0); LYMPHOCYTES # (AUTO) 1.1 K/uL (2.5-16.5); LYMPHOCYTES % (AUTO) 12.6 % (20.5-51.1); MEAN CORPUSCULAR HEMOGLOBIN 30 pg (27-31); MEAN CORPUSCULAR HGB CONC 33 g/dL (33-37); MEAN CORPUSCULAR VOLUME 90.9 fL (80-94); MONOCYTES # (AUTO) 1.4 K/uL (0.8-1.0); MONOCYTES % (AUTO) 16.2 % (1.7-9.3); NEUTROPHILS # (AUTO) 6.4 K/uL (1.8-7.7); NEUTROPHILS % (AUTO) 70.9 % (42.2-75.2); PLATELET COUNT (AUTO) 162 K/uL (140-450); RED BLOOD CELL COUNT(AUTO) 5.29 MIL/uL (4.20-5.40); RED CELL DISTRIBUTION WIDTH 17.8 % (11.6-13.7)
[2024-05-18] MEDS ORDERED: METOPROLOL 5 MG/5 ML VIAL ONE (07:42)
[2024-05-18 07:53] LABS: ALANINE AMINOTRANSFERASE 31 U/L (12-78); ALBUMIN 3.6 g/dL (3.4-5.0); ALKALINE PHOSPHATASE 47 U/L (50-136); ANION GAP 17.8 (8-16); ASPARTATE AMINOTRANSFERASE 35 U/L (15-37); CARBON DIOXIDE 24.5 mmol/L (21-32); CHLORIDE 98 mmol/L (98-107); GLUCOSE 138 mg/dL (74-106); MAGNESIUM 1.9 mg/dL (1.8-2.4); POTASSIUM 3.3 mmol/L (3.5-5.1); SODIUM SERUM 137 mmol/L (136-145); TOTAL BILIRUBIN 2.2 mg/dL (0.0-1.0); UREA NITROGEN, BLOOD 18 mg/dL (7-18)
[2024-05-18] MEDS: METOPROLOL 5 MG/5 ML VIAL IV PRN (07:54)
[2024-05-18] MEDS: BLOOD GLUCOSE MONITORING 1 DEV DEV FS SCH (07:59)
[2024-05-18] MEDS: LORazepam 2 MG/ML VIAL IVP PRN (08:08)
[2024-05-18] MEDS ORDERED: ENOXAPARIN 40 MG/0.4 ML SYR SUBQ SCH (09:00)
[2024-05-18] MEDS ORDERED: NON-FORMULARY ITEM (Dapagliflozin Propanediol (Farxiga) 1 TAB) PO SCH (09:00)
[2024-05-18] MEDS: ASPIRIN 81 MG TAB.CHEW PO SCH (09:49)
[2024-05-18] MEDS: ATORVASTATIN 20 MG TAB PO SCH (09:50)
[2024-05-18] MEDS: carvediloL 3.125 MG TAB PO SCH (09:51)
[2024-05-18] MEDS: CHOLECALCIFEROL 1,000 IU TAB PO SCH (09:51)
[2024-05-18] MEDS: FUROSEMIDE 40 MG/4 ML VIAL IVP SCH ×2 (09:55→18:21)
[2024-05-18 12:00] VITALS: BP 113/86; PULSE 164; PULSE 173; RESP 25; TEMP 98.5; O2SAT 100
[2024-05-18] MEDS: DIGOXIN 0.25 MG/ML AMP IV SCH ×2 (12:21→16:53)
[2024-05-18] MEDS: RIVAROXABAN 10 MG TAB PO SCH (12:33)
[2024-05-18 12:59] VITALS: PULSE 75; RESP 22; O2SAT 91
[2024-05-18 16:00] VITALS: BP 157/121; PULSE 90; RESP 20; TEMP 98.7; O2SAT 100
[2024-05-18 20:00] VITALS: BP 149/73; PULSE 111; RESP 20; TEMP 98.9; O2SAT 95; O2SAT 96
[2024-05-18] MEDS: traZODone 50 MG TAB PO SCH (20:26)
[2024-05-18 22:16] VITALS: O2SAT 96
[2024-05-19] VITALS (8 sets, daily range): BP systolic 121–149; BP diastolic 84–99; PULSE 80–108; RESP 18–20; TEMP 97.3–98.4; O2SAT 99–100
[2024-05-19] MEDS: INSULIN LISPRO SLIDING SCALE 100 UNITS/ML VIAL SUBQ PRN (11:06)
[2024-05-19 12:17] LABS: BASOPHILS % (AUTO) 0.6 % (0.0-2.0); EOSINOPHILS % (AUTO) 0.1 % (0.0-4.0); HEMATOCRIT 44.1 % (36-48); HEMOGLOBIN 14.6 g/dL (12.0-16.0); LYMPHOCYTES # (AUTO) 0.7 K/uL (2.5-16.5); LYMPHOCYTES % (AUTO) 8.9 % (20.5-51.1); MEAN CORPUSCULAR HEMOGLOBIN 30 pg (27-31); MEAN CORPUSCULAR HGB CONC 33 g/dL (33-37); MEAN CORPUSCULAR VOLUME 90.2 fL (80-94); MONOCYTES # (AUTO) 0.8 K/uL (0.8-1.0); MONOCYTES % (AUTO) 9.6 % (1.7-9.3); NEUTROPHILS # (AUTO) 6.8 K/uL (1.8-7.7); NEUTROPHILS % (AUTO) 80.8 % (42.2-75.2); PLATELET COUNT (AUTO) 159 K/uL (140-450); RED BLOOD CELL COUNT(AUTO) 4.89 MIL/uL (4.20-5.40); RED CELL DISTRIBUTION WIDTH 17.4 % (11.6-13.7); WHITE BLOOD COUNT (AUTO) 8.4 K/uL (4.8-10.8)
[2024-05-19 12:32] LABS: ANION GAP 7.4 (8-16); CALCIUM 8.4 mg/dL (8.5-10.1); CHLORIDE 98 mmol/L (98-107); CREATININE 0.7 mg/dL (0.6-1.3); GLUCOSE 108 mg/dL (74-106); SODIUM SERUM 137 mmol/L (136-145); UREA NITROGEN, BLOOD 14 mg/dL (7-18)
[2024-05-19 12:38] LABS: POTASSIUM 2.4 mmol/L (3.5-5.1)
[2024-05-19] MEDS: POTASSIUM CHLORIDE 10 MEQ TABER PO PRN (13:33)
[2024-05-19] MEDS: KCL 20 MEQ IN 100 mL PREMIX 200 ML IV PRN (13:41)
[2024-05-19] MEDS: carvediloL 6.25 MG TAB PO SCH (20:34)
[2024-05-19] MEDS: MEDS-TO-BEDS MC SCH (20:35)
[2024-05-19] MEDS: MAG SULF 2000 MG/WATER PREMIX 50 ML IV SCH (20:37)
[2024-05-20] VITALS (8 sets, daily range): BP systolic 118–153; BP diastolic 95–117; PULSE 63–108; RESP 18–19; TEMP 96.7–97.5; O2SAT 97–100
[2024-05-20 06:38] LABS: BASOPHILS % (AUTO) 0.1 % (0.0-2.0); EOSINOPHILS % (AUTO) 0.4 % (0.0-4.0); HEMATOCRIT 45.6 % (36-48); HEMOGLOBIN 14.5 g/dL (12.0-16.0); LYMPHOCYTES # (AUTO) 1.1 K/uL (2.5-16.5); LYMPHOCYTES % (AUTO) 12.9 % (20.5-51.1); MEAN CORPUSCULAR HEMOGLOBIN 29 pg (27-31); MEAN CORPUSCULAR HGB CONC 32 g/dL (33-37); MEAN CORPUSCULAR VOLUME 90.6 fL (80-94); MONOCYTES # (AUTO) 1.1 K/uL (0.8-1.0); NEUTROPHILS # (AUTO) 6.3 K/uL (1.8-7.7); NEUTROPHILS % (AUTO) 73.6 % (42.2-75.2); PLATELET COUNT (AUTO) 162 K/uL (140-450); RED BLOOD CELL COUNT(AUTO) 5.04 MIL/uL (4.20-5.40); RED CELL DISTRIBUTION WIDTH 17.4 % (11.6-13.7); WHITE BLOOD COUNT (AUTO) 8.5 K/uL (4.8-10.8)
[2024-05-20 07:24] LABS: ANION GAP 9.8 (8-16); CALCIUM 8.5 mg/dL (8.5-10.1); CARBON DIOXIDE 34.5 mmol/L (21-32); CHLORIDE 96 mmol/L (98-107); CREATININE 0.5 mg/dL (0.6-1.3); GLUCOSE 108 mg/dL (74-106); POTASSIUM 3.3 mmol/L (3.5-5.1); SODIUM SERUM 137 mmol/L (136-145); UREA NITROGEN, BLOOD 10 mg/dL (7-18)
[2024-05-20] MEDS ORDERED: FURO-570 PO (14:10)
[2024-05-20] MEDS ORDERED: POTA10TA70 PO (14:10)
== END 2024-05-20 15:00 | disposition home or self-care (01) ==
LOC: MED 14:44 → MTU 21:17
PROVIDERS: ADMIT Internal Medicine; ATTEND Internal Medicine
DX: I11.0 Hypertensive heart disease with heart failure (principal); I50.23 Acute on chronic systolic (congestive) heart failure; R65.10 Systemic inflammatory response syndrome (SIRS) of non-infectious origin without acute organ dysfunction; J96.21 Acute and chronic respiratory failure with hypoxia; I48.20 Chronic atrial fibrillation, unspecified; I25.10 Atherosclerotic heart disease of native coronary artery without angina pectoris; R74.01 Elevation of levels of liver transaminase levels; E87.6 Hypokalemia; E83.42 Hypomagnesemia; E87.20 Acidosis, unspecified; E11.9 Type 2 diabetes mellitus without complications; J45.909 Unspecified asthma, uncomplicated; Z90.49 Acquired absence of other specified parts of digestive tract; Z95.1 Presence of aortocoronary bypass graft; Z79.899 Other long term (current) drug therapy
CPT/HCPCS: 36415; 36600; 71045; 74176; 80048; 80053; 80076; 81001; 82803; 82948; 83605; 83690; 83735; 83880; 84100; 84443; 84484; 85025; 87040; 87081; 87086; 93005; 93307; 94760; 96365; 96366; 96367; 96368; 96372; 96375; 96376; 99291; 99292; G0378; J0696; J1160; J1815; J1940; J2001; J2270; J2405; J3475; J3480; J3490; J7030; J7060